=== PATIENT | female | born 1965 | race Caucasian/White ===

== ENCOUNTER 2019-07-10 01:56 | Day surgery (SDC) | payer OTHER, SELFPAY ==
[2019-07-01 14:52] VITALS: BMI 28.0
--- NOTE | 2019-07-10 09:11 | WPDANESEPPF ---
Anes - Initial Pre Proc Eval Procedure: Operation Date: 07/10/19 10:00 Proposed Procedures p Colonoscopy - Elmer Crenshaw MD Date/Time: 07/10/19 09:11 Surgeon: Elmer Crenshaw MD Pre Op Diagnosis: change in bowels habits, diarrhea, weight loss Patient Data Age: 54 Gender: F Height: 1.6 m Weight: 72 kg Allergies Allergy/AdvReac Type Severity Reaction Status Date / Time No Known Allergies Allergy Unknown Unverified 07/01/19 14:53 Home Medications Medication Instructions Recorded Confirmed Type diphenhydramine HCl [Benadryl] 25 mg PO HS PRN 07/01/19 07/01/19 History Patient hx anesthesia problems: none Family hx anesthesia problems: none PMFSH Past Medical History Medical History (Updated 07/10/19 @ 09:12 by Kennedy Whaley MD) Anxiety Depression Hypercholesterolemia Anes - Eval Final PreProcedure Day of Procedure 07/10/19 09:11 Patient weight: overweight Heart: regular rate and rhythm Lungs: clear to auscultation and normal air movement Airway: Mallampati scale class II Neurological: alert and oriented Last oral intake: >/= 8 hours ASA classification: II Emergent: no Anesthetic plan: proceed Anesthesia type and monitoring: general GIVS Informed Consent: The patient's anesthetic plan and its attendant risks and benefits were discussed with the patient/family/POA. Questions were solicited and answers provided to the satisfaction of the patient/family/POA.
[2019-07-10 09:20] VITALS: BP 148/104; PULSE 67; RESP 18; TEMP 36.5; O2SAT 98
[2019-07-10] MEDS: LACTATED RINGERS 1,000 ML 150 ML IV CONT (09:20)
--- NOTE | 2019-07-10 09:38 | WPDGICN ---
Assessment and Plan Additional Plan This is a 54-year-old white female patient seen in evaluation at the request of Dr. Monae Mccann. Patient reports a 3 month history of nausea vomiting. The nausea vomiting resolved but she continues to have diarrhea since that time. During this interval she has lost 22 lb. Previously had taken narcotics for endometriosis for the previous 8 months. She recently stopped this continue these medications. She was hospitalized in March 2019 with dehydration. After being seen in the office advised to take fiber supplements. She has not yet started this. Past medical history is significant for bipolar, manic depressive illness. Medications include Benadryl. She has no stated drug allergies. Family history is significant her aunt had Crohn's disease. Physical exam reveals her to be alert. Oriented x3. HEENT exam unremarkable. Lungs are clear to auscultation and percussion. Heart is without murmur or extra sounds. Abdominal exam bowel sounds are present soft nontender with no organomegaly. Digital external rectal exam is normal. Laboratory testing including electrolytes CBC metabolic panel all are normal. Celiac sprue panel is negative gastrin level is normal. Impression 1. Change in bowel habits. 2. Chronic diarrhea. Irritable bowel syndrome is felt likely. 3. Weight loss. 4. Neoplasia screening advised because of her age. Plan is for a trial of fiber supplements not yet implemented. Strongly encouraged to the patient. A colonoscopy will be performed for screening purposes as well as to evaluate for source of diarrhea. GI Consult Note Consult date/time: 07/10/19 09:38 HPI: Keyanna Rocha is a 54 year old female [facility] Past Medical History Medical History (Updated 07/10/19 @ 09:12 by Kennedy Whaley MD) Anxiety Depression Hypercholesterolemia Meds Home Medications and Allergies Home Medications Medication Instructions Recorded Confirmed Type diphenhydramine HCl [Benadryl] 25 mg PO HS PRN 07/01/19 07/10/19 History Allergies Allergy/AdvReac Type Severity Reaction Status Date / Time No Known Allergies Allergy Unknown Unverified 07/10/19 09:18 Vital Signs Vital Signs - 24 hr 07/10/19 09:20 Temperature 36.5 C Pulse Rate 67 Respiratory Rate 18 Blood Pressure 148/104 H Pulse Oximetry 98
[2019-07-10 10:16] VITALS: BP 121/93; PULSE 63; RESP 17; O2SAT 99
[2019-07-10 10:26] VITALS: BP 128/78; PULSE 62; RESP 22; O2SAT 100
[2019-07-10 10:36] VITALS: BP 140/65; PULSE 60; RESP 17; O2SAT 100
== END 2019-07-10 10:55 | disposition home or self-care (01) ==
PROVIDERS: PCP Nurse Practitioner Family; Visit Provider Internal Medicine Gastroenterology
PROC: 0DJD8ZZ Inspection of Lower Intestinal Tract, Via Natural or Artificial Opening Endoscopic (ICD-10-PCS; CPT 45378; principal; 2019-07-10 10:00)
DX: Z12.11 Encounter for screening for malignant neoplasm of colon (principal); D12.2 Benign neoplasm of ascending colon; K64.8 Other hemorrhoids; R19.7 Diarrhea, unspecified; R63.4 Abnormal weight loss; E78.00 Pure hypercholesterolemia, unspecified; F41.8 Other specified anxiety disorders
CPT/HCPCS: 45385; 88305; J2704; J7120

== ENCOUNTER 2020-01-15 15:24 | Emergency (ER) | payer OTHER, SELFPAY ==
--- NOTE | ~2020-01-15 | XR_ITS ---
EXAMINATION: XR chest 2V DATE: 01/15/2020 16:06 INDICATION: Left-sided chest pain TECHNIQUE: PA and lateral views of the chest are obtained. COMPARISON: 10/27/2016 FINDINGS: There are minimal airspace opacities of the right middle lobe. There is no pleural effusion or pneumothorax. The cardiomediastinal silhouette is normal. There is mild thoracic spondylosis. IMPRESSION: 1. Minimal airspace opacities of the right middle lobe, consistent with atelectasis versus pneumonia. Reviewed, dictated and finalized at location B. IMPRESSION: 1. Minimal airspace opacities of the right middle lobe, consistent with atelect asis versus pneumonia.
--- NOTE | 2020-01-15 15:26 | ECG_ITS ---
Measurements Intervals [place] Rate: 74 P: 45 VT: 129 QRS: 0 QRSD: 98 T: 102 QT: 364 QTc: 405 Interpretive Statements SINUS RHYTHM CANNOT RULE OUT SEPTAL INFARCT, AGE INDETERMINATE BORDERLINE ST-T WAVE ABNORMALITY- ANT/HIGH LAT LEADS BASELINE ARTIFACT- V5-V6 ABNORMAL ECG Electronically Signed On 01-15-2020 15:51:41 CDT by Aakash Mao D.O.
[2020-01-15 15:29] VITALS: BP 172/91; PULSE 86; RESP 22; TEMP 36.7; O2SAT 100
[2020-01-15 15:32] VITALS: O2SAT 100
[2020-01-15 15:33] VITALS: PULSE 77
[2020-01-15 15:42] LABS: Basophils Absolute Auto 0.1 K/mm3 (0.0-0.1); Basophils Percent Auto 0.6 % (0.2-1.2); Eosinophils Absolute Auto 0.1 K/mm3 (0-0.3); Hematocrit 45.8 % (37.0-47.0); Hemoglobin 15.4 g/dL (12.0-15.0); Immature Granulocyte Absolute 0.07 K/mm3 (0.00-0.031); Immature Granulocyte Percent A 0.5 % (0-0.5); Lymphocytes Absolute Auto 3.92 K/mm3 (0.9-3.2); Lymphocytes Percent Auto 29.1 % (18.3-44.2); Mean Corpuscular HGB Conc 33.6 g/dl (32-36); Mean Corpuscular Hemoglobin 32.3 pg (26-34); Mean Platelet Volume 9.6 fl (7.4-10.4); Monocytes Absolute Auto 1.2 K/mm3 (0.1-0.6); Monocytes Percent Auto 8.8 % (2.6-8.5); Neutrophils Absolute Auto 8.1 K/mm3 (1.3-6.7); Platelet Count Result 386 k/mm3 (150-375); Red Blood Count 4.77 M/mm3 (4.2-5.4); Red Cell Distribution Width 13.6 % (11.5-14.5); White Blood Count 13.5 K/mm3 (4.5-10.0)
[2020-01-15 15:52] LABS: INR 0.9; Prothrombin Time 11.7 Seconds (11.1-14.7)
[2020-01-15 15:53] LABS: Partial Thromboplastin Time 28.6 SECONDS (22.3-36.8)
[2020-01-15 15:54] LABS: Anion Gap 8 mmol/L (8-16); Blood Urea Nitrogen 13 mg/dL (7-17); Calcium 9.7 mg/dL (8.4-10.2); Carbon Dioxide 25 mmol/L (22-30); Chloride 103 mmol/L (98-107); Estimated CRCL calculation 61 ml/min; Estimated Glomerular Filt Rate > 60; Glucose 105 mg/dL (65-105); Potassium 3.8 mmol/L (3.4-5.0); Sodium 136 mmol/L (137-145)
[2020-01-15 16:06] LABS: Troponin I < 0.012 ng/mL (0.000-0.034)
--- NOTE | 2020-01-15 16:21 | ED.GENADULT ---
HPI - General Adult General Chief complaint: Chest Pain Stated complaint: the chest pains Time Seen by Provider: 01/15/20 15:31 Source: patient Mode of arrival: ambulatory Limitations: no limitations History of Present Illness HPI narrative: Patient is a 54-year-old female who presents with left-sided chest pain and pressure that is pleuritic in nature does not radiate for the last 4 days. Patient notes she has had mild cough but denies other URI symptoms or sick contacts. Patient denies fever chills nausea vomiting . Patient with history of anxiety and panic disorder and notes that this could be related. Patient on arrival in the room apparently anxious but in no other distress Related Data Home Medications Medication Instructions Recorded Confirmed sertraline 25 mg PO DAILY 01/15/20 01/15/20 Allergies Allergy/AdvReac Type Severity Reaction Status Date / Time No Known Allergies Allergy Unknown Verified 01/15/20 15:33 Review of Systems Review of Systems: All systems reviewed & are unremarkable except as noted in HPI and below PMFSH Past Medical History Medical History Anxiety Depression Hypercholesterolemia Exam Narrative: Exam Narrative: GENERAL: Well-appearing, well-nourished, and in no acute distress. HEAD: Normocephalic, atraumatic. EYES: PERRLA and EOMI. ENT: Nares clear, no rhinorrhea or epistaxis. Mucous membranes moist. CHEST: Clear to auscultation. No respiratory distress. No wheezes rales or rhonchi HEART: Regular rate and rhythm. No murmur heard. Normal peripheral pulses. ABDOMEN: Soft, nontender, nondistended EXTREMITIES: Normal range of motion. No edema. SKIN: Warm, dry, no rash. NEURO: No focal deficits. Alert and oriented x3. PSYCH: Normal mood and affect. Course Course Emergency Course: Patient in the room aware of case findings treatment plan diagnosis will be discharged at this time aware of COVID testing and recommendations as well as findings today felt appropriate for discharge home Vital Signs Vital signs: Vital Signs Temperature 98.1 F 01/15/20 15:29 Pulse Rate 86 01/15/20 15:29 Respiratory Rate 22 H 01/15/20 15:29 Blood Pressure 172/91 H 01/15/20 15:29 Pulse Oximetry 100 01/15/20 15:29 Temperature 98.1 F 01/15/20 15:29 Pulse Rate 77 01/15/20 15:33 Respiratory Rate 22 H 01/15/20 15:29 Blood Pressure 172/91 H 01/15/20 15:29 Pulse Oximetry 100 01/15/20 15:32 Medical Decision Making MDM Narrative Medical decision making narrative: Patient with possible pneumonia will be tested for COVID treated symptomatically felt appropriate for outpatient reevaluation hemodynamically stable in no distress felt appropriate for outpatient reevaluation provided with reasons to return Vital Signs Vital Signs: Vital Signs Temperature 98.1 F 01/15/20 15:29 Pulse Rate 86 01/15/20 15:29 Respiratory Rate 22 H 01/15/20 15:29 Blood Pressure 172/91 H 01/15/20 15:29 Pulse Oximetry 100 01/15/20 15:29 Temperature 98.1 F 01/15/20 15:29 Pulse Rate 77 01/15/20 15:33 Respiratory Rate 22 H 01/15/20 15:29 Blood Pressure 172/91 H 01/15/20 15:29 Pulse Oximetry 100 01/15/20 15:32 Lab Data Result diagrams: 01/15/20 15:35 01/15/20 15:35 Labs: Lab Results 01/15/20 01/15/20 01/15/20 Range/Units 15:35 15:35 15:35 WBC 13.5 H (4.5-10.0) K/mm3 RBC 4.77 (4.2-5.4) M/mm3 Hgb 15.4 H (12.0-15.0) g/dL Hct 45.8 (37.0-47.0) % MCV 96.0 (80-100) fl MCH 32.3 (26-34) pg MCHC 33.6 (32-36) g/dl RDW 13.6 (11.5-14.5) % Plt Count 386 H (150-375) k/mm3 MPV 9.6 (7.4-10.4) fl Immature Gran % (Auto) 0.5 (0-0.5) % Neut % (Auto) 60.0 (45.5-73.1) % Lymph % (Auto) 29.1 (18.3-44.2) % [place] % (Auto) 8.8 H (2.6-8.5) % Eos % (Auto) 1.0 (0-4.4) % Baso % (Auto) 0.6 (0.2-1.2) % Lymph # (Auto) 3.92 H
[2020-01-15 16:28] LABS: D Dimer 0.27 ug/mL (<0.48)
[2020-01-15 17:33] VITALS: BP 132/88; PULSE 88; RESP 20; TEMP 36.6; O2SAT 99
[2020-01-16 18:11] LABS: SARS-CoV-2 RNA PCR Negative
== END 2020-01-15 17:35 | disposition home or self-care (01) ==
PROVIDERS: Emergency Medicine Emergency Medical Services; Emergency Provider Emergency Medicine; PCP Nurse Practitioner Family
DX: J06.9 Acute upper respiratory infection, unspecified (principal); Z20.828 Contact with and (suspected) exposure to other viral communicable diseases; E78.00 Pure hypercholesterolemia, unspecified; F41.9 Anxiety disorder, unspecified; F32.9 Major depressive disorder, single episode, unspecified
CPT/HCPCS: 36415; 71046; 80048; 84484; 85025; 85380; 85610; 85730; 87635; 93005; 96374; 99284; C9803; J2060; U0003

== ENCOUNTER 2020-01-29 09:26 | Emergency (ER) | payer OTHER, SELFPAY ==
--- NOTE | ~2020-01-29 | XR_ITS ---
EXAMINATION: XR chest 2V EXAM DATE: 01/29/2020 10:15 INDICATION: Follow-up from pneumonia 2 weeks ago, still having left-sided chest pain and shortness of breath. TECHNIQUE: Frontal and lateral projections of the chest obtained and reviewed. Comparison is made to prior examination from 01/15/2020. FINDINGS: The lungs are clear, no evidence of airspace disease on this exam. There are no pleural ef fusions. The cardiomediastinal silhouette is within normal limits. There is no pneumothorax suspect ed. Mild thoracic scoliosis. IMPRESSION: No acute cardiopulmonary findings. Reviewed, dictated and finalized at location B.
--- NOTE | 2020-01-29 09:35 | ECG_ITS ---
Measurements Intervals [place] Rate: 75 P: 59 MA: 148 QRS: 5 QRSD: 86 T: 89 QT: 356 QTc: 398 Interpretive Statements SINUS RHYTHM BORDERLINE R WAVE PROGRESSION, ANTERIOR LEADS BORDERLINE T WAVE ABNORMALITY- HIGH LATERAL LEADS BASELINE ARTIFACT- I, II, III, AVR, AVL BORDERLINE ECG Electronically Signed On 01-29-2020 9:48:49 CDT by Aakash Mao D.O.
[2020-01-29 09:36] VITALS: BP 192/93; PULSE 82; RESP 17; TEMP 36.8; O2SAT 96
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
[2020-01-29] MEDS: KETOROLAC 30 MG/ML VIAL (*BKC) IV PUSH (09:48)
[2020-01-29 09:50] VITALS: BP 135/66; PULSE 63; RESP 18; O2SAT 99
[2020-01-29 10:00] LABS: Basophils Absolute Auto 0.1 K/mm3 (0.0-0.1); Basophils Percent Auto 0.8 % (0.2-1.2); Eosinophils Absolute Auto 0.1 K/mm3 (0-0.3); Immature Granulocyte Absolute 0.07 K/mm3 (0.00-0.031); Immature Granulocyte Percent A 0.6 % (0-0.5); Lymphocytes Absolute Auto 3.24 K/mm3 (0.9-3.2); Lymphocytes Percent Auto 25.7 % (18.3-44.2); Mean Corpuscular HGB Conc 33.3 g/dl (32-36); Mean Corpuscular Hemoglobin 32.3 pg (26-34); Mean Corpuscular Volume 96.8 fl (80-100); Monocytes Absolute Auto 1.1 K/mm3 (0.1-0.6); Monocytes Percent Auto 8.6 % (2.6-8.5); Neutrophils Percent Auto 63.3 % (45.5-73.1); Platelet Count Result 422 k/mm3 (150-375); Red Blood Count 4.96 M/mm3 (4.2-5.4); Red Cell Distribution Width 13.8 % (11.5-14.5); White Blood Count 12.6 K/mm3 (4.5-10.0)
[2020-01-29 10:16] LABS: D Dimer 0.27 ug/mL (<0.48)
[2020-01-29 11:00] VITALS: BP 130/62; PULSE 70; RESP 15; O2SAT 100
--- NOTE | 2020-01-29 11:29 | PC.NURSE ---
Pt declines IV. Will inform of this.
[2020-01-29 11:53] LABS: Anion Gap 5 mmol/L (8-16); Blood Urea Nitrogen 8 mg/dL (7-17); Calcium 9.2 mg/dL (8.4-10.2); Carbon Dioxide 26 mmol/L (22-30); Chloride 106 mmol/L (98-107); Estimated CRCL calculation 77 ml/min; Estimated Glomerular Filt Rate > 60; Glucose 93 mg/dL (65-105); Sodium 137 mmol/L (137-145)
== END 2020-01-29 12:23 | disposition home or self-care (01) ==
PROVIDERS: Emergency Provider Emergency Medicine; PCP Nurse Practitioner Family
DX: S29.012A Strain of muscle and tendon of back wall of thorax, initial encounter (principal); F41.9 Anxiety disorder, unspecified; F32.9 Major depressive disorder, single episode, unspecified; E78.00 Pure hypercholesterolemia, unspecified; F17.200 Nicotine dependence, unspecified, uncomplicated; R94.31 Abnormal electrocardiogram [ECG] [EKG]; V43.92XA Unspecified car occupant injured in collision with other type car in traffic accident, initial encounter
CPT/HCPCS: 36415; 71046; 80048; 85025; 85380; 96374; 99284; J1885

== ENCOUNTER 2020-05-12 12:04 | Outpatient (NON) | payer OTHER, SELFPAY ==
[2020-05-12 23:24] LABS: SARS-CoV-2 RNA PCR Negative
== END 2020-05-12 12:05 ==
LOC: ANHCOVIDDT 12:05
PROVIDERS: PCP Nurse Practitioner Family; Visit Provider Nurse Practitioner Family
DX: R68.89 Other general symptoms and signs (principal); Z20.828 Contact with and (suspected) exposure to other viral communicable diseases
CPT/HCPCS: 87635; C9803; U0003

== ENCOUNTER 2020-09-20 09:49 | Outpatient (CLI) | payer OTHER, SELFPAY | END 2020-09-20 09:50 | disposition home or self-care (01) | LOC: ANHCOVIDVC 09:49 | PROVIDERS: PCP Internal Medicine | DX: Z23 Encounter for immunization (principal) | CPT/HCPCS: 0001A; 91300 ==

== ENCOUNTER 2020-10-11 09:42 | Outpatient (CLI) | payer OTHER, SELFPAY | END 2020-10-11 09:43 | LOC: ANHCOVIDVC 09:42 | PROVIDERS: PCP Internal Medicine | DX: Z23 Encounter for immunization (principal) | CPT/HCPCS: 0002A; 91300 ==

== ENCOUNTER 2021-06-09 15:31 | Emergency (ER) | payer OTHER, SELFPAY ==
--- NOTE | ~2021-06-09 | XR_ITS ---
EXAMINATION: XR hand LT min 3V EXAM DATE: 06/09/2021 16:07 INDICATION: LT hand injury 3-5 Metacarpals X2 Weeks,Bruising,Radiates Up. TECHNIQUE: Left hand frontal, lateral and oblique projections obtained and reviewed. There is no shae or study for comparison. FINDINGS: Left metacarpal bones are unremarkable. There are no acute fractures or dislocations iden tified. There is no subcutaneous gas. The soft tissue is unremarkable. There are no radiopaque fo reign bodies. IMPRESSION: No acute osseous findings. Reviewed, dictated and finalized at location A. ATRICS PHYSICIAN IMPRESSION: No acute osseous findings.
[2021-06-09 15:51] VITALS: BP 143/86; PULSE 80; RESP 20; TEMP 36.1; O2SAT 100
--- NOTE | 2021-06-09 16:24 | ED.GENADULT ---
HPI - General Adult General Chief complaint: Extremity Injury, Upper Stated complaint: Left hand injury x2 weeks ago Time Seen by Provider: 06/09/21 16:20 Source: RN notes reviewed History of Present Illness HPI narrative: Patient presents emerge department from home for left hand pain. Patient states proximally 2 weeks ago she is moving a couch with her and had her hand up on the doorway when the pain got crushed between the doorway and the couch she had pain with bruising and ecchymosis over the left dorsal hand between the first and second metacarpals states pain with movement of the thumb she denies any other trauma or injury denies any wrist pain states that she has been trying to wrap the hand Related Data Home Medications Medication Instructions Recorded Confirmed sertraline 25 mg PO DAILY 01/15/20 01/29/20 Allergies Allergy/AdvReac Type Severity Reaction Status Date / Time No Known Allergies Allergy Unknown Verified 01/29/20 09:40 Review of Systems Review of Systems: Gen.: Denies fevers or chills Musculoskeletal: See HPI Neuro: Denies numbness, tingling, weakness Skin: Denies rash Endo: Denies DM PMFSH Past Medical History Medical History (Updated 06/09/21 @ 16:27 by Chang Atkinson DO) Anxiety Depression Hypercholesterolemia Family History Family History Mother Patient's mother is in good health Hypertension Father Patient's father is in good health Family history of heart disease in male family member before age 55 Grandparent Acute myocardial infarction Grandparent Family history of coronary artery disease Other Family history of malignant neoplasm of cervix Family history of malignant neoplasm of uterus Social History Social History Smoking status: Current every day smoker Alcohol intake: never Gender identity (if verbalized by the patient): Female Exam Narrative: APPEARANCE: No acute distress, nontoxic, resting in bed Eyes: EOMI HEENT: Normocephalic, atraumatic, RESPIRATORY: No respiratory distress MUSCULOSKELETAl: Tender palpation of her left dorsal hand over the first and second meta carpal. Ecchymosis present no swelling no tenderness of the wrist full flexion-extension of all 5 MCP and IP joints, radial pulse 2+ neurovascular intact NEURO: Awake and alert. Following commands, speech normal, no focal deficits SKIN:: Warm, dry. Normal Color no rash or lesions Course Course Emergency Course: Discussed with patient results of workup and diagnosis. Discussed need for follow-up with primary care, proper use of medication, and reasons to return to the emergency department. Patient understands and agrees to current treatment plan Vital Signs Vital signs: Vital Signs Temperature 97.0 F L 06/09/21 15:51 Pulse Rate 80 06/09/21 15:51 Respiratory Rate 20 06/09/21 15:51 Blood Pressure 143/86 H 06/09/21 15:51 Pulse Oximetry 100 06/09/21 15:51 Temperature 97.0 F L 06/09/21 15:51 Pulse Rate 80 06/09/21 15:51 Respiratory Rate 20 06/09/21 15:51 Blood Pressure 143/86 H 06/09/21 15:51 Pulse Oximetry 100 06/09/21 15:51 Medical Decision Making Vital Signs Vital Signs: Vital Signs Temperature 97.0 F L 06/09/21 15:51 Pulse Rate 80 06/09/21 15:51 Respiratory Rate 20 06/09/21 15:51 Blood Pressure 143/86 H 06/09/21 15:51 Pulse Oximetry 100 06/09/21 15:51 Temperature 97.0 F L 06/09/21 15:51 Pulse Rate 80 06/09/21 15:51 Respiratory Rate 20 06/09/21 15:51 Blood Pressure 143/86 H 06/09/21 15:51 Pulse Oximetry 100 06/09/21 15:51 Imaging Data Radiologist's impression: ITS Impressions Hand X-Ray 06/09/21 16:10 IMPRESSION: No acute osseous findings. Discharge Plan Discharge Clinical Impression: Contusion of hand, left Patient Disposition: Home, Self-Care Conditi
== END 2021-06-09 16:35 | disposition home or self-care (01) ==
PROVIDERS: Emergency Provider Emergency Medicine; PCP Nurse Practitioner Family
DX: S60.222A Contusion of left hand, initial encounter (principal); F32.9 Major depressive disorder, single episode, unspecified; F41.9 Anxiety disorder, unspecified; F17.200 Nicotine dependence, unspecified, uncomplicated; W23.0XXA Caught, crushed, jammed, or pinched between moving objects, initial encounter
CPT/HCPCS: 73130; 99283

== ENCOUNTER 2021-11-30 04:44 | Emergency (ER) | payer OTHER, SELFPAY ==
[2021-11-30 04:49] VITALS: BP 153/77; PULSE 66; RESP 18; TEMP 36.6; O2SAT 99
--- NOTE | 2021-11-30 05:55 | ED.BACK ---
HPI - Back Pain/Injury General Chief Complaint: Back Pain/Injury Stated Complaint: back pain Time Seen by Provider: 11/30/21 05:35 History of Present Illness HPI Narrative: 56-year-old female presenting the emergency department for evaluation of acute on chronic back pain. Patient states he does have history of slipped disks and degenerative disc disease. Patient states on Saturday she had a ground-level fall during which she injured her lower back. Patient did have follow-up with her primary care physician and was prescribed a course of steroids and muscle relaxants. Patient states that she is also been taking ibuprofen for pain control. Patient states her pain is improved in the emergency department but states that her back pain is still poorly controlled. Patient denies any associated numbness or weakness. Patient denies any difficulty starting urination and denies any loss of bowel control. Related Data Home Medications Medication Instructions Recorded Confirmed amlodipine 5 mg tablet 5 mg PO DAILY 06/28/21 06/28/21 Allergies Allergy/AdvReac Type Severity Reaction Status Date / Time No Known Allergies Allergy Unknown Verified 11/30/21 04:54 Review of Systems Review of Systems: CONSTITUTIONAL: Denies fever, chills, or sweats. EYES: Denies visual changes, redness, or discharge. CARDIOVASCULAR: Denies chest pain, palpitations, or edema. RESPIRATORY: Denies cough or dyspnea. GASTROINTESTINAL: Denies abdominal pain, nausea, vomiting, or diarrhea. GENITOURINARY: Denies dysuria or hematuria. SKIN: Denies rash or itching. MUSCULOSKELETAL: See HPI NEUROLOGIC: Denies headache, numbness, or weakness. PSYCHIATRIC: Denies anxiety or depression. [facility] Past Medical History Medical History (Updated 11/30/21 @ 06:00 by Surendra Bella MD) Anxiety Depression Hypercholesterolemia Family History Family History Mother Patient's mother is in good health Hypertension Father Patient's father is in good health Family history of heart disease in male family member before age 55 Grandparent Acute myocardial infarction Grandparent Family history of coronary artery disease Other Family history of malignant neoplasm of cervix Family history of malignant neoplasm of uterus Social History Social History (Updated 06/28/21 @ 11:23 by Patrizia Polanco CMA) Smoking status: Current every day smoker Alcohol intake: never Substance use: never Gender identity (if verbalized by the patient): Female Exam Narrative: APPEARANCE: Well appearing, no pain, no distress, well-nourished. HEAD: normocephalic, atraumatic. EYES: PERRLA/EOMI, conjunctivae clear. NECK: Supple. No adenopathy, no masses. RESPIRATORY: Airway patent, respirations nonlabored. Clear to auscultation bilaterally, no rales, rhonchi, wheezing. CARDIOVASCULAR: Regular rate and rhythm without murmurs rubs or gallops. ABDOMINAL: Soft, nontender, nondistended, normal bowel sounds MUSCULOSKELETAL: Moves all extremities. No midline tenderness to palpation. NEURO: Alert. Cranial nerves II through XII intact. Grossly intact SKIN: Warm, dry. Normal Color Course Course Emergency Course: Patient was encouraged to continue taking ibuprofen for pain control along with her baclofen. Patient was comfortable to plan for discharge and close follow-up Vital Signs Vital signs: Vital Signs Temperature 97.9 F 11/30/21 04:49 Pulse Rate 66 11/30/21 04:49 Respiratory Rate 18 11/30/21 04:49 Blood Pressure 153/77 H 11/30/21 04:49 Pulse Oximetry 99 11/30/21 04:49 Oxygen Delivery Room Air 11/30/21 04:49 Temperature 97.9 F 11/30/21 04:49 Pulse Rate 87 11/30/21 06:35 Respiratory Rate 14 11/30/21 06:35 Blood Pressure 134/89 11/30/21 06:35 Pulse Oximetry 97 11/30/21 06:35 Oxygen Delivery Room Air 11/30/21 04:49 Discharge Plan Discharge Clinical Impression: L[place]
[2021-11-30] MEDS: HYDROcodone/acetaminophen (*CRX) 5-325 MG TABLET 1 TAB PO (06:06)
[2021-11-30 06:35] VITALS: BP 134/89; PULSE 87; RESP 14; O2SAT 97
== END 2021-11-30 06:35 | disposition home or self-care (01) ==
LOC: ANHED 06:11
PROVIDERS: Emergency Provider Emergency Medicine; PCP Nurse Practitioner Family
DX: M54.50 Low back pain, unspecified (principal); G89.29 Other chronic pain; E78.00 Pure hypercholesterolemia, unspecified; F17.200 Nicotine dependence, unspecified, uncomplicated
CPT/HCPCS: 99283; A9270

== ENCOUNTER 2022-02-21 08:03 | Emergency (ER) | payer OTHER, SELFPAY ==
[2022-02-21 08:11] VITALS: BP 144/77; PULSE 86; RESP 16; TEMP 36; O2SAT 97
[2022-02-21 08:12] VITALS: BP 144/77; PULSE 86; RESP 16; TEMP 36; O2SAT 97
--- NOTE | 2022-02-21 08:22 | ED.FEMALEGU ---
HPI - Female Genitourinary General Chief complaint: Urogenital-Female Stated complaint: uti Time Seen by Provider: 02/21/22 08:23 Source: patient, RN notes reviewed and old records reviewed Mode of arrival: ambulatory Limitations: no limitations History of Present Illness HPI Narrative: 56-year-old female who presents to [facility] care with complaints of continued lower back pain and discomfort over the suprapubic abdomen region. Patient states she did start on Cipro that was ordered by her PCP on the of this month she states she still has complaints of lower back pain and suprapubic tenderness. Patient also was given some Flexeril for low back pain on 02/15/2022 but states she has ran out. Patient would like to try some Pyridium for her symptoms and states she needs a refill of the Flexeril. MD elicited complaint: dysuria, back pain and other (Suprapubic pain) Location of symptoms: suprapubic and low back Related Data Home Medications Medication Instructions Recorded Confirmed aripiprazole 2 mg tablet mg 02/21/22 ciprofloxacin HCl 500 mg tablet mg 02/21/22 cyclobenzaprine 10 mg tablet mg 02/21/22 Allergies Allergy/AdvReac Type Severity Reaction Status Date / Time No Known Allergies Allergy Unknown Verified 02/21/22 08:10 Review of Systems Review of Systems: CONSTITUTIONAL: Denies fever, chills, or sweats. EYES: Denies visual changes, redness, or discharge. ENT: Denies rhinorrhea, congestion, sore throat, or otalgia. CARDIOVASCULAR: Denies chest pain, palpitations, or edema. RESPIRATORY: Denies cough or dyspnea. GASTROINTESTINAL: Suprapubic abdominal pain, nausea, vomiting, or diarrhea. GENITOURINARY: Positive dysuria or hematuria. SKIN: Denies rash or itching. MUSCULOSKELETAL: Lower back pain, joint pain, or myalgia. NEUROLOGIC: Denies headache, numbness, or weakness. PSYCHIATRIC: Denies anxiety or depression. All systems reviewed & are unremarkable except as noted in HPI and below PMFSH Past Medical History Medical History (Updated 02/21/22 @ 08:38 by Eliz Lombardo NP) Anxiety Depression Hypercholesterolemia Family History Family History Mother Patient's mother is in good health Hypertension Father Patient's father is in good health Family history of heart disease in male family member before age 55 Grandparent Acute myocardial infarction Grandparent Family history of coronary artery disease Other Family history of malignant neoplasm of cervix Family history of malignant neoplasm of uterus Social History Social History Smoking status: Current every day smoker Alcohol intake: never Substance use: never Gender identity (if verbalized by the patient): Female Comments At time of signature, agree with nursing past medical, surgical, social and family history. There is no relevant family history pertinent to the presenting complaint Exam Narrative: GENERAL: Well-appearing, well-nourished, and in no acute distress. HEAD: Normocephalic, atraumatic. EYES: PERRLA and EOMI. ENT: Nares clear, no rhinorrhea or epistaxis. Mucous membranes moist. TMs normal with good light reflex. Throat pink no lesions or swelling NECK: Supple. No lymphadenopathy CHEST: Clear to auscultation. No respiratory distress. SaO2 97% on room air HEART: Regular rate and rhythm. No murmur heard. Normal peripheral pulses. ABDOMEN: Soft, suprapubic tender, nondistended, normal active bowel sounds. Lower back discomfort, no CVA tenderness EXTREMITIES: Normal range of motion. No edema. SKIN: Warm, dry, no rash. NEURO: No focal deficits. Alert and oriented x3. Course Course Level of Care: Express Care Visit Vital Signs Vital signs: Vital Signs Temperature 36.0 C L 02/21/22 08:11 Pulse Rate 86 02/21/22 08:11 Respiratory Rate 16 02/21/22 08:11 Blood Pressure 144/77 H 02/21/22 08:11
== END 2022-02-21 08:50 | disposition home or self-care (01) ==
PROVIDERS: Emergency Provider Registered Nurse; PCP Nurse Practitioner Family
DX: N39.0 Urinary tract infection, site not specified (principal); M54.50 Low back pain, unspecified; F17.200 Nicotine dependence, unspecified, uncomplicated; E78.00 Pure hypercholesterolemia, unspecified
CPT/HCPCS: 81003; 99213; G0463

== ENCOUNTER 2022-02-22 11:21 | Emergency (ER) | payer OTHER, SELFPAY ==
--- NOTE | ~2022-02-22 | CT_ITS ---
EXAMINATION: CT abdomen pelvis wo con DATE: 02/22/2022 13:43 INDICATION: Suprapubic pain TECHNIQUE: Computed tomography (CT) of the abdomen and pelvis was performed without intravenous contr ast. The dose-length product (DLP) was 736.30 mGy-cm. Automated exposure control and iterative recons truction technique were employed. COMPARISON: 03/12/2019 FINDINGS: Minimal dependent atelectasis is present in the lung bases. The heart size is normal. The l iver, spleen, pancreas, gallbladder, and adrenal glands are normal. The kidneys are unremarkable. No stones are identified in the kidneys, ureters, or bladder. There is no hydronephrosis or hydroureter. A retroaortic left renal vein is noted. No pathologically enlarged abdominal or pelvic lymph nodes a re identified. There is moderate lumbar spondylosis. IMPRESSION: 1. No CT correlate for the patient's symptoms. Reviewed, dictated and finalized at location B.
[2022-02-22 11:27] VITALS: BP 138/90; PULSE 90; RESP 16; TEMP 36.4; O2SAT 96
--- NOTE | 2022-02-22 13:09 | PC.NURSE ---
patient declines IV medications and IV at this time, EDP made aware.
[2022-02-22 13:14] LABS: Basophils Absolute Auto 0.1 K/mm3 (0.0-0.1); Basophils Percent Auto 0.6 % (0.2-1.2); Eosinophils Absolute Auto 0.2 K/mm3 (0-0.3); Eosinophils Percent Auto 1.2 % (0-4.4); Hematocrit 46.2 % (37.0-47.0); Hemoglobin 15.2 g/dL (12.0-15.0); Immature Granulocyte Absolute 0.08 K/mm3 (0.00-0.031); Immature Granulocyte Percent A 0.6 % (0-0.5); Lymphocytes Absolute Auto 2.71 K/mm3 (0.9-3.2); Lymphocytes Percent Auto 21.3 % (18.3-44.2); Mean Corpuscular HGB Conc 32.9 g/dl (32-36); Mean Corpuscular Hemoglobin 32.1 pg (26-34); Mean Corpuscular Volume 97.5 fl (80-100); Mean Platelet Volume 9.2 fl (7.4-10.4); Monocytes Absolute Auto 1.3 K/mm3 (0.1-0.6); Monocytes Percent Auto 10.2 % (2.6-8.5); Neutrophils Absolute Auto 8.4 K/mm3 (1.3-6.7); Neutrophils Percent Auto 66.1 % (45.5-73.1); Platelet Count Result 377 k/mm3 (150-375); Red Blood Count 4.74 M/mm3 (4.2-5.4); Red Cell Distribution Width 13.8 % (11.5-14.5); White Blood Count 12.8 K/mm3 (4.5-10.0)
[2022-02-22 13:27] LABS: Bacteria Urine 1+ /hpf; Mucus Urine Rare /lpf; RBC Urine 0-2 /hpf (0-2); Squamous Epithelial Cell Urine Few /hpf (Few); WBC Urine 0-3 /hpf
[2022-02-22 13:29] LABS: Anion Gap 12 mmol/L (8-16); Blood Urea Nitrogen 15 mg/dL (7-17); Calcium 10.1 mg/dL (8.4-10.2); Carbon Dioxide 24 mmol/L (22-30); Chloride 102 mmol/L (98-107); Estimated CRCL calculation 61 ml/min; Estimated Glomerular Filt Rate > 60; Glucose 105 mg/dL (65-110); Sodium 138 mmol/L (137-145)
[2022-02-22] MEDS: KETOROLAC (*BKC) 60 MG/2 ML VIAL IM (13:35)
[2022-02-22 13:38] LABS: Add Urine Microscopic? YES; Appearance Urine Slightly Cloudy (Clear); Color Urine Orange (Yellow)
--- NOTE | 2022-02-22 13:52 | ED.GENADULT ---
HPI - General Adult General Chief complaint: Urogenital-Female Stated complaint: abd pain Time Seen by Provider: 02/22/22 12:00 History of Present Illness HPI narrative: Patient is a 56-year-old female who presents ER with suprapubic discomfort. Ongoing over the last couple days. Concerned she may have a UTI. Has been taking Pyridium without improvement. She has also been taking ciprofloxacin for 3 days without improvement. She never had dysuria. No fevers or chills or sweats. No history of kidney stones. Denies nausea or vomiting. Related Data Home Medications Medication Instructions Recorded Confirmed aripiprazole 2 mg tablet mg 02/21/22 ciprofloxacin HCl 500 mg tablet mg 02/21/22 cyclobenzaprine 10 mg tablet mg 02/21/22 Allergies Allergy/AdvReac Type Severity Reaction Status Date / Time No Known Allergies Allergy Unknown Verified 02/21/22 08:10 Review of Systems Review of Systems: All systems reviewed & are unremarkable except as noted in HPI and below Constitutional: Constitutional: Denies chills, Denies fatigue and Denies fever(s) Gastrointestinal: Gastrointestinal: Reports abdominal pain, Denies diarrhea, Denies nausea and Denies vomiting Genitourinary: Genitourinary: Reports nocturia, Denies dysuria, Reports pelvic pain and Denies flank pain PMFSH Past Medical History Medical History (Updated 02/22/22 @ 14:55 by Alfonso Rosales MD) Anxiety Depression Hypercholesterolemia Surgical History Surgical History (Updated 02/22/22 @ 13:58 by Alfonso Rosales MD) History of hysterectomy Normal colonoscopy Family History Family History Mother Patient's mother is in good health Hypertension Father Patient's father is in good health Family history of heart disease in male family member before age 55 Grandparent Acute myocardial infarction Grandparent Family history of coronary artery disease Other Family history of malignant neoplasm of cervix Family history of malignant neoplasm of uterus Social History Social History Smoking status: Current every day smoker Alcohol intake: never Substance use: never Gender identity (if verbalized by the patient): Female Exam Narrative: GENERAL: Well-appearing, well-nourished, and in no acute distress. HEAD: Normocephalic, atraumatic. CHEST: Clear to auscultation. No respiratory distress. HEART: Regular rate and rhythm. Normal peripheral pulses. ABDOMEN: Soft, patient reports suprapubic discomfort without rebound or guarding, nondistended. EXTREMITIES: Normal range of motion. No edema. SKIN: Warm, dry, no rash. NEURO: Alert and oriented x3. PSYCH: Normal mood and affect. Course Course Emergency Course: Patient may continue home antibiotics as there is 1+ bacteria in urine but otherwise it appears normal on micro. Blood work normal. No improvement with Toradol. CT without obstructing stone. Patient has had total hysterectomy so no concern for ovarian pathology. Will treat as bladder spasm. Vital Signs Vital signs: Vital Signs Temperature 97.6 F 02/22/22 11:27 Pulse Rate 90 02/22/22 11:27 Respiratory Rate 16 02/22/22 11:27 Blood Pressure 138/90 02/22/22 11:27 Pulse Oximetry 96 02/22/22 11:27 Oxygen Delivery Room Air 02/22/22 11:27 Temperature 97.6 F 02/22/22 11:27 Pulse Rate 90 02/22/22 11:27 Respiratory Rate 16 02/22/22 11:27 Blood Pressure 138/90 02/22/22 11:27 Pulse Oximetry 96 02/22/22 11:27 Oxygen Delivery Room Air 02/22/22 11:27 Medical Decision Making Vital Signs Vital Signs: Vital Signs Temperature 97.6 F 02/22/22 11:27 Pulse Rate 90 02/22/22 11:27 Respiratory Rate 16 02/22/22 11:27 Blood Pressure 138/90 02/22/22 11:27 Pulse Oximetry 96 02/22/22 11:27 Oxygen Delivery Room Air 02/22/22 11:27 Temperature 97.6 F 02/22
[2022-02-22 15:52] VITALS: BP 130/75; PULSE 85; RESP 15; O2SAT 100
== END 2022-02-22 15:45 | disposition home or self-care (01) ==
PROVIDERS: Emergency Provider Emergency Medicine; PCP Nurse Practitioner Family
DX: N32.89 Other specified disorders of bladder (principal); F17.200 Nicotine dependence, unspecified, uncomplicated
CPT/HCPCS: 36415; 74176; 80048; 81001; 85025; 96372; 99284; A9270; J1885

== ENCOUNTER 2022-05-26 16:48 | Emergency (ER) | payer OTHER, SELFPAY ==
[2022-05-26 16:57] VITALS: BP 149/101; PULSE 87; RESP 16; TEMP 36.1; O2SAT 99
--- NOTE | 2022-05-26 17:06 | ED.URI ---
HPI - URI/Sore Throat General Chief Complaint: Upper Respiratory Infection Stated Complaint: sore throat Time Seen by Provider: 05/26/22 17:07 Source: patient, RN notes reviewed and old records reviewed Mode of arrival: ambulatory Limitations: no limitations History of Present Illness HPI Narrative: 57-year-old female presents to the [facility] with nasal congestion, sore throat, drainage started about a week ago when she called her primary care provider called in a Z-Marcelino. States that she completed her Z-Marcelino castrate she is not better. Denies any fevers, chest pain, shortness of breath. Related Data Home Medications Medication Instructions Recorded Confirmed aripiprazole 2 mg tablet mg 02/21/22 azithromycin 250 mg tablet mg 05/26/22 Allergies Allergy/AdvReac Type Severity Reaction Status Date / Time No Known Allergies Allergy Unknown Verified 05/26/22 16:50 Review of Systems Review of Systems: All systems reviewed & are unremarkable except as noted in HPI and below Constitutional: Constitutional: Reports no additional constitutional complaints Eyes: Eyes: Reports no additional eye complaints ENT: Reports as per HPI and Reports sore throat Cardiovascular: Cardiovascular: Reports no additional cardiovascular complaints, Denies chest pain and Denies dyspnea Respiratory: Respiratory: Reports no additional respiratory complaints, Denies chest congestion, Denies cough and Denies dyspnea Gastrointestinal: Gastrointestinal: Reports no additional gastrointestinal complaints, Denies abdominal pain, Denies nausea and Denies vomiting Musculoskeletal: Musculoskeletal: Reports no additional musculoskeletal complaints Integumentary/Breasts: Skin/Breast: Reports system reviewed and no additional complaints, except as docu Neurologic: Reports system reviewed and no additional complaints, except as documented Psychiatric: Psychiatric: Reports no additional psychiatric complaints Allergic/Immunologic: Allergic/Immunologic: Reports no additional allergic/immunologic complaints [facility] Past Medical History Medical History Anxiety Depression Hypercholesterolemia Surgical History Surgical History History of hysterectomy Normal colonoscopy Family History Family History Mother Patient's mother is in good health Hypertension Father Patient's father is in good health Family history of heart disease in male family member before age 55 Grandparent Acute myocardial infarction Grandparent Family history of coronary artery disease Other Family history of malignant neoplasm of cervix Family history of malignant neoplasm of uterus Social History Social History Smoking status: Current every day smoker Alcohol intake: never Substance use: never Gender identity (if verbalized by the patient): Female Comments At the time of my signature, I reviewed and agree with the nursing past medical, surgical, social, and family history. There is no relevant family history pertinent to the patient complaint. Exam Const: General: cooperative, healthy appearing, comfortable, no acute distress, well developed, alert and well nourished Nutritional Appearance: well nourished Orientation/consciousness: patient oriented x3 Limitations: no limitations HENMT: Head: normal to inspection Ears: hearing grossly normal bilaterally and external ears normal Face/Nose/Sinus: Normal external nose present, Normal nares present, Normal nasal mucous membranes and turbinates present and normal facial exam Face and sinus: normal facial exam Mouth: Yes Normal oral and palatal mucosa present, Yes lip normal and Yes moist mucous membranes Throat: posterior oropharynx normal, uvula midline and postnasal drainage Eyes: Genera
== END 2022-05-26 17:26 | disposition home or self-care (01) ==
PROVIDERS: Emergency Provider Nurse Practitioner; PCP Nurse Practitioner Family
DX: R09.82 Postnasal drip (principal); J02.9 Acute pharyngitis, unspecified; F17.290 Nicotine dependence, other tobacco product, uncomplicated; E78.00 Pure hypercholesterolemia, unspecified
CPT/HCPCS: 99213; G0463

== ENCOUNTER 2023-01-24 14:03 | Emergency (ER) | payer OTHER, SELFPAY ==
--- NOTE | ~2023-01-24 | XR_ITS ---
EXAMINATION: XR finger 3rd RT min 2V DATE: 01/24/2023 14:28 INDICATION: Right hand third digit injury and pain. TECHNIQUE: 5 views of right hand third digit were obtained. COMPARISON: None. FINDINGS: There is mild flexion of third distal interphalangeal joint and hyperextension of proximal interphalangeal joint. No fracture. Joint spaces are normal. IMPRESSION: 1. [place]-neck deformity of third digit. Reviewed, dictated and finalized at location A.
[2023-01-24 14:09] VITALS: BP 154/80; PULSE 76; RESP 16; TEMP 37.1; O2SAT 98
--- NOTE | 2023-01-24 14:35 | ED.GENADULT ---
HPI - General Adult General Chief complaint: Extremity Injury, Upper Stated complaint: Right Hand Finger Pain Time Seen by Provider: 01/24/23 14:36 Source: patient, RN notes reviewed and old records reviewed Mode of arrival: ambulatory Limitations: no limitations History of Present Illness HPI narrative: 57-year-old female presents to the [facility] with issue straightening the right middle finger at the DIP joint. Patient reports that she reached into her washing machine jamming her finger. Injury happened approximately noon today Placed a splint with a popsicle stick on the finger, states it feels better Onset (ago): hour(s) (2) Related Data Home Medications Medication Instructions Recorded Confirmed aripiprazole 2 mg tablet mg 02/21/22 duloxetine 40 mg capsule,delayed mg PO 01/24/23 release Allergies Allergy/AdvReac Type Severity Reaction Status Date / Time No Known Allergies Allergy Unknown Verified 05/26/22 16:50 Review of Systems Review of Systems: All systems reviewed & are unremarkable except as noted in HPI and below Constitutional: Constitutional: Reports no additional constitutional complaints Eyes: Eyes: Reports no additional eye complaints ENT: Reports system reviewed and no additional complaints, except as documented Cardiovascular: Cardiovascular: Reports no additional cardiovascular complaints, Denies chest pain and Denies dyspnea Respiratory: Respiratory: Reports no additional respiratory complaints, Denies chest congestion, Denies cough and Denies dyspnea Gastrointestinal: Gastrointestinal: Reports no additional gastrointestinal complaints, Denies abdominal pain, Denies nausea and Denies vomiting Musculoskeletal: Musculoskeletal: Reports as per HPI Integumentary/Breasts: Skin/Breast: Reports system reviewed and no additional complaints, except as docu Neurologic: Reports system reviewed and no additional complaints, except as documented Psychiatric: Psychiatric: Reports no additional psychiatric complaints Allergic/Immunologic: Allergic/Immunologic: Reports no additional allergic/immunologic complaints [facility] Past Medical History Medical History Anxiety Depression Hypercholesterolemia Surgical History Surgical History History of hysterectomy Normal colonoscopy Family History Family History Mother Patient's mother is in good health Hypertension Father Patient's father is in good health Family history of heart disease in male family member before age 55 Grandparent Acute myocardial infarction Grandparent Family history of coronary artery disease Other Family history of malignant neoplasm of cervix Family history of malignant neoplasm of uterus Social History Social History Smoking status: Current every day smoker Alcohol intake: never Substance use: never Gender identity (if verbalized by the patient): Female Comments At the time of my signature, I reviewed and agree with the nursing past medical, surgical, social, and family history. There is no relevant family history pertinent to the patient complaint. Exam Const: General: cooperative, healthy appearing, comfortable, no acute distress, well developed, alert and well nourished Nutritional Appearance: well nourished Orientation/consciousness: patient oriented x3 Limitations: no limitations HENMT: Head: normal to inspection Ears: hearing grossly normal bilaterally and external ears normal Face/Nose/Sinus: Normal external nose present, Normal nares present, Normal nasal mucous membranes and turbinates present and normal facial exam Face and sinus: normal facial exam Eyes: General: appearance normal, both eyes and all related structures Alignment and Position: alignment normal Per
== END 2023-01-24 14:58 | disposition home or self-care (01) ==
PROVIDERS: Emergency Provider Nurse Practitioner; PCP Nurse Practitioner Family
DX: M20.011 Mallet finger of right finger(s) (principal); F17.200 Nicotine dependence, unspecified, uncomplicated; F41.9 Anxiety disorder, unspecified; F32.A Depression, unspecified; E78.00 Pure hypercholesterolemia, unspecified
CPT/HCPCS: 29130; 73140; 99213; G0463

== ENCOUNTER 2023-02-18 11:48 | Emergency (ER) | payer OTHER, SELFPAY ==
--- NOTE | 2023-02-18 12:35 | PC.NURSE ---
called twice for triage. no answer.
== END 2023-02-18 12:35 | disposition left against medical advice (07) ==
LOC: ANHED 12:40
PROVIDERS: Emergency Provider Emergency Medicine; PCP Nurse Practitioner Family
DX: Z53.21 Procedure and treatment not carried out due to patient leaving prior to being seen by health care provider (principal)
CPT/HCPCS: 99199

== ENCOUNTER 2023-07-22 12:39 | Emergency (ER) | payer OTHER, SELFPAY ==
--- NOTE | 2023-07-22 12:42 | ECG_ITS ---
Measurements Intervals [place] Rate: 95 P: 23 ME: 159 QRS: 37 QRSD: 80 T: 104 QT: 315 QTc: 397 Interpretive Statements SINUS RHYTHM POSSIBLE LEFT ATRIAL ENLARGEMENT [-0.1mV P WAVE IN V1/V2] POOR R-WAVE PROGRESSION ABNORMAL ECG COMPARED TO ECG 01/29/2020 09:34:40 NO SIGNIFICANT CHANGE Electronically Signed On 07-22-2023 15:10:47 ANIMAL CARE SUPERVISOR by Valdo Olivas M.D.
[2023-07-22 12:50] VITALS: BP 127/75; PULSE 107; RESP 20; TEMP 36.2; O2SAT 100
--- NOTE | 2023-07-22 12:54 | ED.SOB ---
HPI - SOB/Dyspnea General Chief Complaint: Chest Pain Stated Complaint: SOB/Chest Wall Pain Time Seen by Provider: 07/22/23 13:08 Source: patient Mode of arrival: ambulatory Limitations: no limitations History of Present Illness HPI Narrative: 58-year-old female presents with concern for chest pain. She reports pain started yesterday and was a 9/10. Reports today it is 3/10. She reports the pain starts between her left-sided neck and left-sided shoulder. Reports she has some pain in the left arm and tingling in her left fingers. She denies injury or trauma to the neck, chest. She denies cough. Reports occasional shortness of breath. She reports history of anxiety, she takes medication for anxiety. She denies nausea, vomiting. She denies upper respiratory infection symptoms MD elicited complaint: chest pain Related Data Home Medications Medication Instructions Recorded Confirmed aripiprazole 2 mg tablet mg 02/21/22 duloxetine 40 mg capsule,delayed 40 mg PO AC 01/24/23 07/22/23 release Allergies Allergy/AdvReac Type Severity Reaction Status Date / Time No Known Allergies Allergy Unknown Verified 07/22/23 12:56 Review of Systems Review of Systems: CONSTITUTIONAL: Denies malaise, chills, sweats, or fever. EYES: Denies visual changes, redness, or discharge. ENT: Denies rhinorrhea, congestion, sinus pain, otalgia or sore throat. CARDIOVASCULAR: Reports chest pain. Denies palpitations or edema. RESPIRATORY: Denies cough or dyspnea. GASTROINTESTINAL: Denies abdominal pain, nausea, vomiting SKIN: Denies rash or itching, bruising, redness MUSCULOSKELETAL: Reports pain between the left neck and shoulder NEUROLOGIC: Denies numbness, weakness. Reports tingling in her left fingers PSYCHIATRIC: Reports anxiety All systems reviewed & are unremarkable except as noted in HPI and below PMFSH Past Medical History Medical History Anxiety Depression Hypercholesterolemia Surgical History Surgical History History of hysterectomy Normal colonoscopy Family History Family History Mother Patient's mother is in good health Hypertension Father Patient's father is in good health Family history of heart disease in male family member before age 55 Grandparent Acute myocardial infarction Grandparent Family history of coronary artery disease Other Family history of malignant neoplasm of cervix Family history of malignant neoplasm of uterus Social History Social History Smoking status: Current every day smoker Alcohol intake: never Substance use: never Gender identity (if verbalized by the patient): Female Comments At time of signature, agree with nursing past medical, surgical, social and family history. There is no relevant family history pertinent to the presenting complaint Exam Narrative: GENERAL: Well-appearing, well-nourished, and in no acute distress. HEAD: Normocephalic, atraumatic. EYES: PERRLA, sclera clear, and EOMI. No nystagmus. ENT: Nares clear, turbinates pink, no rhinorrhea or epistaxis. Mucous membranes moist. NECK: Supple. No lymphadenopathy. No jugular venous distension, thyromegaly, or carotid bruits. Carotids were easily palpable bilaterally. CHEST: No respiratory distress. Clear to auscultation. No bony deformities, no asymmetry. Speaks in full sentences. HEART: Regular rate and rhythm. No murmur heard. Normal peripheral pulses. EXTREMITIES: Normal range of motion. No edema. Normal strength and sensation. SKIN: Warm, dry, no visible rash. NEURO: Alert and oriented x3. No focal deficits. Cranial nerves II through XII grossly intact PSYCH: Anxious Course Course Emergency Course: Discussed exam an EKG findings with the patient. Advised that Opal bell
[2023-07-22 12:57] VITALS: BP 127/75; PULSE 106; RESP 26; TEMP 36.2; O2SAT 100
== END 2023-07-22 13:40 | disposition home or self-care (01) ==
PROVIDERS: Emergency Provider Nurse Practitioner; PCP Nurse Practitioner Family
DX: R07.9 Chest pain, unspecified (principal); R94.31 Abnormal electrocardiogram [ECG] [EKG]; F17.200 Nicotine dependence, unspecified, uncomplicated; E78.00 Pure hypercholesterolemia, unspecified
CPT/HCPCS: 93005; 99213; G0463

== ENCOUNTER 2024-02-11 13:56 | Outpatient (CLI) | payer OTHER, SELFPAY ==
--- NOTE | ~2024-02-11 | CT_ITS ---
CT Scan of the Chest without Contrast: Clinical Indication: Lung cancer screening, nicotine dependence Technique: Contiguous sections were acquired throughout the chest without intravenous contrast. Dose reduction technique was used on this scan by utilizing automated exposure control and iterative recon struction technique. The dose-length product (DLP) was 84.08 mGy-cm. Findings: There is no evidence of any significant mediastinal, hilar or axillary lymphadenopathy. Calcified med iastinal and right hilar lymph nodes are present. There is no evidence of pleural or pericardial effusion. The lungs are clear. No pulmonary nodules or infiltrates are noted. Images through the upper abdomen reveal no abnormalities. Impression: Lung RADS 1: Negative. 12 month follow-up screening CT advised. Reviewed, dictated and finalized at location . Impression: Lung RADS 1: Negative. 12 month follow-up screening CT advised.
== END 2024-02-11 13:57 | disposition home or self-care (01) ==
LOC: ANHIMG 14:01
PROVIDERS: PCP Nurse Practitioner Family; Visit Provider Nurse Practitioner Family
DX: Z12.2 Encounter for screening for malignant neoplasm of respiratory organs (principal); F17.210 Nicotine dependence, cigarettes, uncomplicated
CPT/HCPCS: 71271

== ENCOUNTER 2024-05-01 17:20 | Emergency (ER) | payer OTHER, SELFPAY ==
--- NOTE | ~2024-05-01 | XR_ITS ---
EXAMINATION: XR chest 2V DATE: 05/01/2024 17:58 INDICATION: Chest pain. Hypertension. TECHNIQUE: Frontal and lateral views of the chest were obtained. COMPARISON: Chest 2 views 01/29/2020 FINDINGS: There is mild atelectasis in left lower lung zone. A calcified right lung nodule is consist ent with old granulomatous disease. No pleural effusion or pneumothorax. The heart size is normal. IMPRESSION: 1. Mild atelectasis in left lower lung zone. Reviewed, dictated and finalized at location A. [employer]ER
[2024-05-01 17:22] VITALS: BP 182/95; PULSE 74; RESP 20; TEMP 36.4; O2SAT 98
--- NOTE | 2024-05-01 17:23 | ECG_ITS ---
Test Date: 2024-05-01 17:35:09 Measurements Intervals [place] Rate: 62 P: 39 MA: 142 QRS: 2 QRSD: 98 T: 103 QT: 378 QTc: 387 Interpretive Statements SINUS RHYTHM LEFT VENTRICULAR HYPERTROPHY WITH ST-T CHANGE CONSIDER ANTERIOR INFARCT, AGE INDETERMINATE CONSIDER INFERIOR INFARCT, AGE INDETERMINATE NONSPECIFIC ST & T-WAVE ABNORMALITY- LATERAL LEADS ABNORMAL ECG No previous ECG available for comparison Electronically Signed On 05-01-2024 19:00:34 ADVERTISING TRAFFIC MANAGER by Aakash Mao D.O.
[2024-05-01 17:36] LABS: Basophils Absolute Auto 0.1 K/mm3 (0.0-0.1); Basophils Percent Auto 0.7 % (0.2-1.2); Eosinophils Absolute Auto 0.2 K/mm3 (0-0.3); Eosinophils Percent Auto 1.3 % (0-4.4); Hematocrit 49.1 % (37.0-47.0); Hemoglobin 16.5 g/dL (12.0-15.0); Immature Granulocyte Absolute 0.04 K/mm3 (0.00-0.031); Immature Granulocyte Percent A 0.3 % (0-0.5); Lymphocytes Absolute Auto 3.56 K/mm3 (0.9-3.2); Mean Corpuscular HGB Conc 33.6 g/dl (32-36); Mean Corpuscular Hemoglobin 32.6 pg (26-34); Mean Platelet Volume 9.6 fl (7.4-10.4); Monocytes Absolute Auto 1.1 K/mm3 (0.1-0.6); Monocytes Percent Auto 8.8 % (2.6-8.5); Neutrophils Absolute Auto 7.4 K/mm3 (1.3-6.7); Neutrophils Percent Auto 59.9 % (45.5-73.1); Platelet Count Result 403 k/mm3 (150-375); Red Blood Count 5.06 M/mm3 (4.2-5.4); Red Cell Distribution Width 13.4 % (11.5-14.5); White Blood Count 12.3 K/mm3 (4.5-10.0)
[2024-05-01 17:45] LABS: Alanine Aminotransferase 22 U/L (6-35); Alkaline Phosphatase 113 U/L (38-126); Anion Gap 9 mmol/L (4-12); Aspartate Amino Transferase 29 U/L (14-36); Bilirubin,Total 1.3 mg/dL (0.2-1.3); Blood Urea Nitrogen 11 mg/dL (7-17); Calcium 9.9 mg/dL (8.4-10.2); Carbon Dioxide 26 mmol/L (22-30); Chloride 104 mmol/L (98-107); Estimated CRCL calculation 74 ml/min; Estimated Glomerular Filt Rate > 60; Glucose 115 mg/dL (65-110); Lipase 78 U/L (23-300); Potassium 3.5 mmol/L (3.4-5.0); Sodium 139 mmol/L (137-145)
[2024-05-01 17:53] LABS: INR 0.9; Prothrombin Time 12.8 Seconds (11.1-14.7)
[2024-05-01 17:54] LABS: Partial Thromboplastin Time 27.5 Seconds (22.3-36.8)
[2024-05-01 17:56] LABS: Troponin I < 0.012 ng/mL (0.000-0.034)
--- NOTE | 2024-05-01 22:41 | PC.NURSE ---
Patient not found when called for in the lobby.
== END 2024-05-01 23:09 | disposition left against medical advice (07) ==
LOC: ANHED 22:56
PROVIDERS: Emergency Provider Emergency Medicine; PCP Nurse Practitioner Family
DX: R06.02 Shortness of breath (principal)
CPT/HCPCS: 36415; 71046; 80053; 83690; 84484; 85025; 85610; 85730; 93005; 99199

== ENCOUNTER 2024-11-09 10:29 | Emergency (ER) | payer OTHER, SELFPAY ==
[2024-11-09 10:35] VITALS: BP 154/77; PULSE 77; RESP 18; TEMP 36.4; O2SAT 97
--- OUTSIDE RECORDS SUMMARY | 2024-11-09 11:03 | XMS_ITS | Continuity of Care Document ---
Author Organization [facility] Address [address] [place] [id number] Phone Care Team Providers Care Hotel Services Supervisor Name Role Phone Arnel Balderas MD Unavailable Unavailable Allergies, Adverse Reactions, Alerts Substance Reaction Status Criticality No Known Allergies Active No Inform ation Medications Medication Instructions Dosage Effective Dates (start - stop) Status Comments Lamictal 100 mg tablet take 1 tablet by oral route every day 100 MG - Active Lipitor 40 mg tablet take 1 tablet by oral route every day 40 MG - Active Percocet 10 mg-325 mg tablet take 1 tablet by oral route 3 times every day as needed 1 tablet - Active avoid drivin g or operat emachines Celexa 20 mg tablet take 1 tablet by oral route every day 20 MG - Active trazodone 150 mg tablet take 1 tablet by oral route every day at bedtime - Active Procedures Procedure Date OFFICE/OUTPATIENT VISIT, EST OFFICE/OUTPATIENT VISIT, EST OFFICE/OUTPATIENT VISIT, EST OFFICE/OUTPATIENT VISIT, EST OFFICE/OUTPATIENT VISIT, EST PREV VISIT, EST, AGE 40-64 OFFICE/OUTPATIENT VISIT, EST OFFICE/OUTPATIENT VISIT, EST OFFICE/OUTPATIENT VISIT, EST OFFICE/OUTPATIENT VISIT, EST OFFICE/OUTPATIENT VISIT, EST OFFICE/OUTPATIENT VISIT, EST OFFICE/OUTPATIENT VISIT, EST OFFICE/OUTPATIENT VISIT, EST OFFICE/OUTPATIENT VISIT, EST OFFICE/OUTPATIENT VISIT, EST OFFICE/OUTPATIENT VISIT, EST OFFICE/OUTPATIENT VISIT, EST OFFICE/OUTPATIENT VISIT, EST PREV VISIT, NEW, AGE 40-64 OFFICE/OUTPATIENT VISIT, NEW Advance Directives Directive Yes / No Effective Date File Name No Information Encounters Encounter Description Practice Location Reason(s) For Visit Diagnoses Date Provider Providers Copied on Encounter [facility], [address], [place], [place], [address], tel:[phone] [facility] No Information Andrey Seals. [address], [place], [place], [address] , [place]. tel:[phone] OFFICE/OUTPA TIENT VISIT, [facility], [address], [place], [place], [address], tel:[phone] [facility] HLP (chief complaint) anxiety1 (chief complaint) back pain1 (chief complaint) insomnia1 (chief complaint) HyperlipidemiaGener alized anxiety disorderChronic pain syndromeInsomnia 7 Andrey Seals. [address], [place], [place], [address] , [place]. tel:[phone] Referring Provider: Katelynn Ladd [address], [place], [place], [address]. tel:[phone] OFFICE/OUTPA TIENT VISIT, [facility], [address], [place], [place], [address], [place] tel:[phone] [facility] HLP (chief complaint) anxiety1 (chief complaint) back pain1 (chief complaint) HyperlipidemiaGener alized anxiety disorderChronic pain syndrome 7 Andrey Seals. [address], [place], [place], [address] , [place]. tel:[phone] Referring Provider: Katelynn Ladd [address], [place], [place], [address]. tel:[phone] OFFICE/OUTPA TIENT VISIT, EST [facility], [address], [place], [place], [address], [place] tel:[phone] [facility] HLP (chief complaint) anxiety1 (chief complaint) back pain1 (chief complaint) insomnia1 (chief complaint) HyperlipidemiaChron ic pain syndromeInsomniaGen eralized anxiety disorder 7 Andrey Seals. [address], [place], [place], [address] , [place]. [phone] Referring Provider: Katelynn Ladd [address], [place], [place], [address]. tel:[phone] OFFICE/OUTPA TIENT VISIT, [facility], [address], [place], [place], [address], [place] tel:[phone] [facility] HLP (chief complaint) UTI1 (chief complaint) anxiety1 (chief complaint) wbc (chief complaint) HyperlipidemiaLeuko cytosisInsomniaGene ralized anxiety disorder 7 Andrey Seals. [address], [place], [place], [address] , [place]. tel:[phone] Referring Provider: Katelynn Ladd [address], [place], [place], [address]. tel:[phone] OFFICE/OUTPA TIENT VISIT, EST [facility], [address], [place], [place], [address], [place] tel:[phone] [facility] facial rash1 (chief complaint) Rash Dec-0 6 Andrey Seals. [address], [place], [place], [address] , [place]. tel:[phone] Referring Provider: Katelynn Ladd [address], [place], [place], [address]. tel:[phone] PREV VISIT, EST, AGE 40-64 [facility], [address], [place], [place], [address], [place] tel:[phone] [facility] Medicine PHysical (chief complaint) Encounter for general adult medical exam w abnormal findingsChest painChronic pain syndromeInsomnia 6 Andrey Connolly [address], [place], [place], [address] , [place]. tel:[phone] Referring Provider: Katelynn Ladd [address], [place], [place], [address]. tel:[phone] OFFICE/OUTPA TIENT VISIT, [facility], [address], [place], [place], [address], [place] tel:[phone] [facility] chest pain1 (chief complaint) anxiety1 (chief complaint) back pain1 (chief complaint) insomnia1 (chief complaint) Chest painGeneralized anxiety disorderChronic pain syndromeOther insomnia 6 Andrey Connolly [address], [place], [place], [address] , [place]. tel:[phone] Referring Provider: Katelynn Ladd [facility] [address], [place], [place], [address]. tel:[phone] OFFICE/OUTPA TIENT VISIT, [facility], [address], [place], [place], [address], [place] tel:[phone] [facility] headache1 (chief complaint) anxiety1 (chief complaint) back pain1 (chief complaint) HTN (chief complaint) HeadacheEssential (primary) hypertensionChronic pain syndromeGeneralized Anxiety Disorder Sep-3 6 Andrey Banks[address], [place], [place], [address] , [place]. tel:[phone] Referring Provider: Katelynn Ladd [address], [place], [place], [address]. tel:[phone] OFFICE/OUTPA TIENT VISIT, [facility], [address], [place], [place], [address], [place] tel:[phone] [facility] wieght gain (chief complaint) chronic pain (chief complaint) anxiety1 (chief complaint) HLP (chief complaint) Abnormal weight gainGeneralized Anxiety DisorderChronic pain syndromeHyperlipide destin Sep-0 - 6 Andrey Seals. [address], [place], [place], [address] , [place]. tel:[phone] Referring Provider: Katelynn Ladd [address], [place], [place], [address]. tel:[phone] OFFICE/OUTPA TIENT VISIT, [facility], [address], [place], [place], [address], [place] tel:[phone] [facility] back apin1 (chief complaint) insomnia1 (chief complaint) headache1 (chief complaint) Other insomniaGeneralized Anxiety DisorderOther spondylosis, lumbar regionHeadache 6 Andrey Seals. [address], [place], [place], [address] , [place]. [phone] Referring Provider: Katelynn Ladd [address], [place], [place], [address]. tel:[phone] OFFICE/OUTPA TIENT VISIT, [facility], [address], [place], [place], [address], [place] tel:[phone] [facility] LBP1 (chief complaint) anxiety1 (chief complaint) headache1 (chief complaint) HeadacheGeneralized Anxiety DisorderChronic pain syndrome 6 Andrey Seals. [address], [place], [place], [address] , [place]. [phone] Referring Provider: Katelynn Ladd [address], [place], [place], [address]. tel:[phone] OFFICE/OUTPA TIENT VISIT, [facility], [address], [place], [place], [address], [place] tel:[phone] [facility] anxiety1 (chief complaint) back pain1 (chief complaint) insomnia1 (chief complaint) Other spondylosis, lumbar regionGeneralized Anxiety DisorderOther insomnia 6 Andrey Seals. [address], [place], [place], [address] , [place]. tel:[phone] Referring Provider: [address], [place], [place], [address]. tel:[phone] OFFICE/OUTPA TIENT VISIT, [facility], [address], [place], [place], [address], [place] tel:[phone] [facility] headache1 (chief complaint) anxiety1 (chief complaint) back pain1 (chief complaint) HeadacheGeneralized Anxiety DisorderChronic pain syndromeEncounter for screening for osteoporosis 6 Andrey Seals. [address], [place], [place], [address] , [place]. tel:[phone] Referring Provider: Katelynn Ladd [address] [facility] [address], [place], [place], [address]. tel:[phone] OFFICE/OUTPA TIENT VISIT, [facility], [address], [place], [place], [address], [place] tel:[phone] [facility] headache1 (chief complaint) back pain1 (chief complaint) anxiety1 (chief complaint) UTI (chief complaint) Urinary tract infectionChronic pain syndromeGeneralized anxiety disorderHeadache 6 Andrey Seals. [address], [place], [place], [address] , [place]. tel:[phone] Referring Provider: Katelynn Ladd [address], [place], [place], [address]. tel:[phone] OFFICE/OUTPA TIENT VISIT, [facility], [address] [place] [place], [address], [place] tel:[phone] [facility] chronic pain (chief complaint) anxiety1 (chief complaint) withdraw (chief complaint) Chronic pain syndromeGeneralized anxiety disorderAnxiolytic dependence w/ withdrawalUrinary tract infection 6 Andrey Seals. [address], [place], [place], [address] , [place]. tel:[phone] Referring Provider: Katelynn Ladd [address], [place], [place], [address]. tel:[phone] OFFICE/OUTPA TIENT VISIT, [facility], [address], [place], [place], [address], [place] tel:[phone] [facility] anxety1 (chief complaint) back pain1 (chief complaint) trazodone1 (chief complaint) rash1 (chief complaint) Other insomniaGeneralized Anxiety DisorderChronic pain syndromeRash 6 Andrey Seals. [address], [place], [place], [address] , [place]. tel:[phone] Referring Provider: Arnel Baldersa, [address], [place], [place], [address]. tel:[phone] OFFICE/OUTPA TIENT VISIT, [facility], [address], [place], [place], [address], [place] tel:[phone] [facility] anxiety1 (chief complaint) insomnia1 (chief complaint) back pain1 (chief complaint) Chronic pain syndromeGeneralized anxiety disorderOther insomnia 5 Andrey Seals. [address], [place], [place], [address] , [place]. [phone] Referring Provider: Katelynn Ladd [address], [place], [place], [address]. tel:[phone] OFFICE/OUTPA TIENT VISIT, [facility], [address], [place], [place], [address], [place] tel:[phone] [facility] UTI1 (chief complaint) HLP (chief complaint) back pain1 (chief complaint) Aniety1 (chief complaint) Metabolic syndromeMixed hyperlipidemiaUrina ry tract infectionOther spondylosis, lumbar region 5 Andrey Seals. [address], [place], [place], [address] , [place]. [phone] Referring Provider: Katelynn Ladd [address], [place], [place], [address]. tel:[phone] PREV VISIT, NEW, AGE 40-64 [facility], [address], [place], [place], [address], [place] tel:[phone] [facility] PHysical (chief complaint) Encounter for general adult medical exam w abnormal findingsOther intervertebral disc displacement, lumbar regionGeneralized anxiety disorder 5 Andrey Seals. [address], [place], [place], [address] , [place]. tel:[phone] Referring Provider: Arnel Balderas [address], [place], [place], [address]. tel:[phone] Family History Family Member Type Diagnosis Age At Onset Father Problem (finding) Alive and well Father Problem (finding) Coronary artery disease Mother Problem (finding) back pain Payers Payer name Insurance type Covered constitution party ID Authoriza tion(s) No Information Social History Type Description Quantity Date Captured Comments Alcohol Use Details Unknown Caffeine Use Details Unknown Tobacco Use Status Smoking Status No Information Sex Female Chief Complaint And Reason For Visit No Information Plan Of Treatment Date Type Action Status Referral Ordered: KAYLEE GARCIA (related to Chest pain) ordered Referral Referred To: KAYLEE GARCIA [id number] [facility]
[address], [id number] Ordered: Referrals: KAYLEE GARCIA. Evaluate and treat ordered Referral Ordered: CHEST X-RAY PA/LAT TWO-VIEWS ordered Referral Ordered: MAMMOGRAM, SCREENING ordered History Of Present Illness Encounter Date Complaint History Of Prese nt Illness HLP Pt has HLP Pt st ates that she has not been taking lipitor? Pt denies any myalgia Pt still eateing poorly .Pt is noncompliant with lab work. Pt states that she does not know why she stopped lipitor anxiety1 Pt has chronic a nxiety and depression Pt has mood swings .Pt takes celexa, lamictal and xanax and doing ok. Pt denies any suicidal or homicdial thought. Pt denies any crying spell, ,Pt steates that her mood is better with lamictal. back pain1 Pt has chronic l ow back pain. Pt denies any loss of bowel or bladder control. pt denies any worsening pain. Pt has bilateral sciatica and leg numbness. Pt has discogenic pain . insomnia1 Pt doing ok with trazodone. Pt denies any snoring or any trouble with breathing at night. Pt denies waking up in the morning and feeling fatigue HLP Pt has HLP Pt ta kes lipitor Pt has not done lab yet pt denies any myalgia anxiety1 Pt has chronic a nxiety and depression and mood swings. Pt was told she has bipolar. Pt has depressive episodes and she sometimes become irritable and she yells at her . Pt denies any suicidal or homicidal thought. Pt has crying spells. Pt also off celexa for unknown reason Pt also is off seroquel. Pt feels more depressed lately. Pt will see counseling soon back pain1 P thas chronic l ow back pain. Pt denies any worsening pain Pt has DDD Pt denies any loss of bladder control HLP Pt has HLP Pt ta kes lipitor Pt denies any myalgia anxiety1 Pt has chronic a nxiety and depression Pt has mood swings .Pt takes celexa and seroquel and xanax Pt states that seroquel is not working for her mood Pt is very irritable. Pt states that her mother in law is causing her problem at home. Pt has a lot of anger and frustrations at home back pain1 Pt has chronic l ow back pain. Pt denies any loss of bowel or bladder control. Pt denies any worsening kaden Pt has 7/10 pain insomnia1 Pt has insomnia. Pt takes trazodone. Pt denies any snoring or any trouble with breathing. HLP Pt has HLP Pt baird s high TC and TG. Pt is not on any diet UTI1 Pt has UTI. Pt t ook levaquin and she denies any symptoms now anxiety1 Pt has chronic a nxiety and depression Pt takes celexa and seroquel and also xanax and doign ok Pt denies any suicidal or homicidal thought. Pt also takes trazodone for insomnia. Pt denies any worsening symptoms wbc Pt has mildly hi gh WBC. Pt denies any fever facial rash1 Pt c/o facial it luh and swelling and burning for 2-3 weeks. Pt went to [facility] and had steroid injection and she is on medrol dose ashley and zyrtec but not working. Pt notices itching eyelid but no eye problem. No drainage or any vision problem. Pt denies any trouble with breathing or swallowing. Pt denies any fever PHysical Pt needs annual physical. Pt has chronic low back pain and is opioid dependent. Pt takes percocet PRN for pain. Pt has chronic anxiety and depression and mood swings with insomnia. Pt takes celexa, seroquel and trazodone and xanax and doing ok. Pt denies any suicidal or homicidal thought. Pt has 7/10 low back pain. Pt has mild sciatiac Pt has mild leg numbness. Pt denies any worsening pain. Pt denies any chest pain and she has not seen cariology or do chest xray yet. chest pain1 Pt c/o intermitt ent chest tightness during last month. Pt denies any diarhoresis Pt denies any radiation of pain to arm or neck. Pt denies any SOB. Pt denies any nandini chest pain. Pt states that the symptmos are not related to any activity or physical exertion. Pt has been going through a lot of stress. Pt denies any acute chest tightness anxiety1 Pt has chronic a nxiety and depression. Pt takes celexa, seroquel and xanax. Pt denies any suicidal or homicidal thought. Pt denies any crying spells. back pain1 Pt has chronic l ow back apin Pt denies any loss of bowel or bladder control. Pt has DDD. Pt is opioid dependent. Pt c/o mild sciatica. Pt denies any loss of bowel or bladder control. insomnia1 Pt has insomnia. Pt takes trazodone qhs and doing ok. Pt denies any snoring or any trouble with breathing at night. headache1 Pt has intermitt ent migraine headache. Pt has throbbing headache with photophobia and nausea 2-3 per month. Pt denies any head injury. Pt states that imitrex helps. Pt denies any worsening headache anxiety1 Pt has chronic a nxiety and depression and insomnia and bipolar mood swings. Pt takes celexa, seroquel and also xanax PRN. Pt doing ok with her mood and insomnia. Pt takes trazodone also. Pt denies any suicidal or homicidal thought. Pt denies any cyring spells back pain1 Pt has chronic l ow back pain. Pt has 6/10 pain. Pt denies any worsening pain. Pt denies any loss of bowel or bladder control. HTN Pt has mild HTN today. Pt denies any chest pain. wieght gain Pt has been gain ing weight. Pt is not very active Pt is not dieting chronic pain Pt has chronic l ow back pain. Pt denies any loss of patricia or bladder control Pt denies any worsening pain. Pt denies any scaitica anxiety1 Pt has chronic a nxeity and depression Pt has insomnia Pt takes celexa, seroquel and xanax Pt denies any suicidal or homicdial thought HLP Pt has high TG a nd she has mildly high glucose pt denies any polyuria, polydipsia Pt is not diet and exercise. back apin1 Pt has chronic l ow back pain Pt states that she has been having worsening pain. Pt had to wake up in the middle of the night and take more percocet. Pt denies any injury. insomnia1 Pt has been taki ng trazodone and seroquel but still has difficulty falling asleep. Pt has been taking extra xanax also at night for insomnia headache1 Pt has chronic m igraine headache Pt states that imtirex 100 is too strong and she has been cutting to 50 mg to take for her headache, which works very well. Pt has headache 2-3 per month with photophobia and nausea Pt denies anyacute headache or head injury LBP1 Pt has chronic l ow back pain. Pt denies any loss of bowel or bladder control. Pt takes percocet for pain and doing ok. Pt denies any worsenign pain. Pt denies any sciatica or any numbness. anxiety1 Pt has chornic a nxiety and depression. Pt takes celexa, xanax and seroquel. Pt doing ok currently. Pt denies any suicidal or homicdial thought. headache1 Pt has history o f migraine and she did well with imitrex. Pt statse that she no longer has headache now. Pt denies any head injury anxiety1 Pt has chronic a nxizety and depression and mood swings. pt takes celexa, xanax and seroquel and doing ok pt denies any suicidal or homicdial thought. Pt denies anyc rying spells back pain1 Pt has chornic l ow back pain Pt denies any loss of bowel or bladde control. Pt denies any sciatica or any numbness. Pt denies any worsening kaden insomnia1 Pt has insomnia. Pt takes trazodone pt denies any snoring or any trouble with breathing at night headache1 Pt has been havi ng frontal headache. Pt states that imitrex does help. Pt has headache dailyi. pt states that she lost her glass and her eye issue is causing her headache Pt is in the process of getting eye glass fixed. Pt denies any head injury. Pt denies any nauea, Pt has photophobia anxiety1 Pt has chronic a nxiety and depression and mood swings. Pt is takign celexa, xanax and seroquel and doing ok Pt denies any suicidal or homicdial thought. Pt denies any cyring spells. Her home situation is better back pain1 Pt has chronic L BP Pt denies any loss of bowel or bladde control or worsening pain Pt denies any numbness. Pt failed NSAID UTI Additional infor mation: PT denies any UTI symptoms now. Pt states that she has uTI symptoms everytime she has sex. headache1 Pt has been havi ng migraine hedache for the past several weeks. Pt denies any nasuea, vomiting, head injury. Pt has been having a lot of stress back pain1 Pt has chronic l ow back pain. PT denies any loss of owel or bladder control. Pt denies any worsening pain. anxiety1 Pt has chronic a nxiety and depression and mood swings. Pt has a lot of stress. Her son is involved with drugs. Pt denies any suicidal or homicidal thought. Pt denies any crying spells. chronic pain Pt has chronic l ow back pain. Pt denies any loss of bowel or bladder control. Pt denies any worsening pain. Pt has mild sciatica and leg numbness. anxiety1 Pt has chronic a nxiety and depression. Pt takes celexa and xanax and doing ok. Pt denies any suicidal or homicidal thought. Pt states that seroquel and trazodone work ok with her mood and insomnia withdraw Pt recently trie d to get off xanax on her own and she stopped taking xanax abruptly and developped some type of mental confusion, aggression, agitation state. Her took her to [facility] where she was admitted. Pt had negative head CT. Pt was diagnosed with acute xanax withdraw and also UTI. PT had mild UTI and she was treated with levaquin. Pt was also treated for hypokalemia and also her initial leukocytosis did come back towards the end of her hospitalization. Pt currently feeling ok. Pt denies any chest pain, mental status change, headache, etc Pt states that she was given some ativan from hospital but is not working. Pt states that she wants to get back on xanax. Pt denies any suicidal or homicidal thought or any headache or any mental status change now anxety1 Pt has chronic a nxiety and depression. Pt takes celexa and xanax pt deniess any suicidal or homicidal thought. Pt denies any crying spells. Pt statse that she has a lot of paranoia and she has mood swings. Pt wants to try medicine for that. Pt was told she has bipolar in the past back pain1 Pt has chronic l ow back pain. Pt denies any loss of bowel or bladder control. Pt c/o left sciatica/ Pt c/o mild left leg numnbess. trazodone1 Pt has insomnia. Pt states that trazodone 100 mg did not work. Pt used to take 200 mg trazodone which worked. Pt denies any snoring. rash1 Pt c/o mild irri tating rash under right breast for several weeks. Pt states that her breast dangles down and she has a lot of sweat. Pt denies any drainage Pt denies any pain anxiety1 Pt has chronic a nxiety and depression. Pt takes celexa and xanax. Pt denies any sucidal thought Pt denies any crying spells. Pt denies any feeling of hopelessness. insomnia1 Pt has insomnia. Pt used to take trazodone but is out Pt does have snoring but denies any trouble with breathing at night. Pt has trouble falling alsleep. Pt feels fatigue in the morning sometimes back pain1 Pt has chronic l ow back pain with left sciatica and some left leg numbness. Pt denies any worsening pain or any symptoms Pt denies any injury. Pt takes percocet for pain back pain1 Pt has low low b ack pain with left scaiatica and left leg numbness. Her MRI showed interval worsening of spondylosis. Pt denies any loss of bowel or bladder control. Pt has 7/10 pain pt failed pain injection in the past Aniety1 Pt has chronic a nxiety and depression. Pt takes celexa and xanax. Pt denies any suicidal or homicidal thought Pt denies any crying spells UTI1 Pt has UTI. Pt d enies any UTI symptoms, Pt states that she did have history of frequent UTIs. Pt denies any flank pain. HLP Pt has mildly el evated TG. Her A1c is slightly elevated Pt denies any polyuria, polydipsia. PHysical Pt needs annual physical. Pt has chornic low back pain. Pt c/o left sciatica and left leg numnbess and tingling. Her pain is getting worse Pt has 7/10 pain. Pt had MRI done two years ago. Pt is on percocoet for pain. Pt stats that she has pain all the time. Pt also has chronic anxiety and depression. Pt takes xanaax and celexa. pt used to see psychiatrist and neurology but she did not like both above and she is looking for PCP to treat her. Pt denies any other complaitns Instructions Date Instruction Additional Infor mation Prescribed Diet Educ ation/Lifestyle Education Regarding Diet Related to Dietary Surveillance and Counseling Prescribed Activity and Exercise Education Related to Dietary Surveillance and Counseling Prescribed Diet Educ ation/Lifestyle Education Regarding Diet Related to Dietary Surveillance and Counseling Prescribed Activity and Exercise Education Related to Dietary Surveillance and Counseling Prescribed Activity and Exercise Education Related to Dietary Surveillance and Counseling Prescribed Diet Educ ation/Lifestyle Education Regarding Diet Related to Dietary Surveillance and Counseling Prescribed Diet Educ ation/Lifestyle Education Regarding Diet Related to Dietary Surveillance and Counseling Prescribed Activity and Exercise Education Related to Dietary Surveillance and Counseling Prescribed Diet Educ ation/Lifestyle Education Regarding Diet Related to Dietary Surveillance and Counseling Prescribed Activity and Exercise Education Related to Dietary Surveillance and Counseling Prescribed Diet Educ ation/Lifestyle Education Regarding Diet Related to Dietary Surveillance and Counseling Prescribed Activity and Exercise Education Related to Dietary Surveillance and Counseling Prescribed Activity and Exercise Education Related to Dietary Surveillance and Counseling Prescribed Diet Educ ation/Lifestyle Education Regarding Diet Related to Dietary Surveillance and Counseling Prescribed Activity and Exercise Education Related to Dietary Surveillance and Counseling Prescribed Diet Educ ation/Lifestyle Education Regarding Diet Related to Dietary Surveillance and Counseling Prescribed Diet Educ ation/Lifestyle Education Regarding Diet Related to Dietary Surveillance and Counseling Prescribed Activity and Exercise Education Related to Dietary Surveillance and Counseling Prescribed Diet Educ ation/Lifestyle Education Regarding Diet Related to Dietary Surveillance and Counseling Prescribed Activity and Exercise Education Related to Dietary Surveillance and Counseling Prescribed Activity and Exercise Education Related to Dietary Surveillance and Counseling Prescribed Diet Educ ation/Lifestyle Education Regarding Diet Related to Dietary Surveillance and Counseling Prescribed Activity and Exercise Education Related to Dietary Surveillance and Counseling Prescribed Diet Educ ation/Lifestyle Education Regarding Diet Related to Dietary Surveillance and Counseling Prescribed Activity and Exercise Education Related to Dietary Surveillance and Counseling Prescribed Diet Educ ation/Lifestyle Education Regarding Diet Related to Dietary Surveillance and Counseling Prescribed Activity and Exercise Education Related to Dietary Surveillance and Counseling Prescribed Diet Educ ation/Lifestyle Education Regarding Diet Related to Dietary Surveillance and Counseling Prescribed Diet Educ ation/Lifestyle Education Regarding Diet Related to Dietary Surveillance and Counseling Prescribed Activity and Exercise Education Related to Dietary Surveillance and Counseling Prescribed Activity and Exercise Education Related to Dietary Surveillance and Counseling Prescribed Diet Educ ation/Lifestyle Education Regarding Diet Related to Dietary Surveillance and Counseling Assessments Type Assessment Date No Information
--- OUTSIDE RECORDS SUMMARY | 2024-11-09 11:03 | XMS_ITS | Continuity of Care Document ---
Author [facility] Address [address] [address] [place] [address] Phone Care Team Providers Care Endocrinology Specialist Name Role Phone Luciano GÓMEZ, Flora Unavailable Unavailable Procedures Procedure Date No Charge Visit Advance Directives Directive Yes / No Effective Date File Name No Information Encounters Encounter Description Practice Location Reason(s) For Visit Diagnoses Date Provider Providers Copied on Encounter [facility], [address], [place], [place], [address], tel:[phone] OPH CONSULT [facility] No Information 5 Luciano Hines. [address] [facility] [facility] [address], [place], [place], [address] , [place]. tel:[phone] Referring Provider: Flora Valentino, [address] [facility] [address], [place], [address] . tel:[phone] Family History Family Member Type Diagnosis Age At Onset No Information Payers Payer name Insurance type Covered republican ID Authoriza tion(s) [employer]/ [employer] Social History Type Description Quantity Date Captured Comments Sex Female Smoking Status No Information Chief Complaint And Reason For Visit No Information Reason For Referral Reason For Referral No Information History Of Present Illness Encounter Date Complaint History Of Prese nt Illness No Information Functional Status Date Functional Assessmen t No Information Instructions Date Instruction Additional Infor mation No Information Assessments Type Assessment Date No Information Patient Care Teams Name Effective Dates (start - stop) Status Members No Information
--- OUTSIDE RECORDS SUMMARY | 2024-11-09 11:03 | XMS_ITS | Clinical Summary ---
Author Organization [facility] Address [address] [place] [address] Phone Care Team Providers Care Supervisor Boiler Repair Name Role Phone Chidi Mott MD Primary Care Provider [phone] Allergies No known active allergies Medications atorvastatin (LIPITOR) 40 MG Tablet Take 40 mg by mouth daily. 3 9 Active cholestyramine (QUESTRAN) 4 GM/DOSE Powder Take 4 g by mouth Daily as needed. 9 Active promethazine (PHENERGAN) 25 MG Tablet Take 25 mg by mouth every 6 hours as needed. 9 Active SUMAtriptan (IMITREX) 100 MG Tablet Take 100 mg by mouth as needed. 9 Active triamcinolone (KENALOG) 0.1 % Cream Apply 0.1 Tubes as needed. 9 Active ciprofloxacin (CIPRO) 500 MG Tablet Take 500 mg by mouth as needed. Active metaxalone (SKELAXIN) 800 MG Tablet Take 800 mg by mouth 3 times daily. Active omeprazole (PRILOSEC) 40 MG CAPSULE DELAYED RELEASE Take 40 mg by mouth daily. Active Buprenorphine HCl-Naloxone HCl 5.7-1.4 MG SL Tablet 5.7 Tabs by Sublingual route daily. Active Family History Relation Name Status Comments Brother Alive Father Alive Mother Alive Social History Tobacco Use Types Packs/Day Years Used Date Smoking Tobacco: Every Day Cigarettes 1 40 Smokeless Tobacco: Never Tobacco Cessation:Ready to Q uit: No Alcohol Use Standard Drinks/Week Comments Not Currently 0 (1 standard drink = 0.6 oz pur e alcohol) AUDIT-C Answer Date Recorded Frequency of Alcohol Consumption Never 03/02/2019 Average Number of Drinks Not on file 019 Frequency of Binge Drinking Not on file 02/09 PHQ-2 Answer Date Recorded PHQ-2 Score 0 03/02/2019 Comments Unknown Sex and Gender Information Value Date Recorded Sex Assigned at Not on file Legal Sex Female 12:30 PM CDT Gender Identity Not on file Sexual Orientation Not on file Last Filed Vital Signs Vital Sign Reading Time Taken Comments Blood Pressure 128/76 03/02/2019 2:56 PM CDT Pulse 73 03/02/2019 2:56 PM CDT Temperature 36.1 C (97 F) 03/02/2019 2:56 PM CDT Respiratory Rate 73 03/02/2019 2:56 PM CDT Oxygen Saturation - - Inhaled Oxygen Concentration - - Weight 72.7 kg (160 lb 3.2 oz) 03/02/2019 2:56 P M CDT Height 160 cm (5' 3) 03/02/2019 2:56 PM CDT Body Mass Index 28.38 03/02/2019 2:56 PM CDT Plan of Treatment Health Maintenance Due Date Last Done Comments Colonoscopy 02/25/2009 Colorectal Cancer Screening 02/25/2009 Cologuard 02/25/2014 Immunochemical Fecal Occult Blood 02/25/2014 Pneumococcal Immunization (5 0+ years) (1 of 1 - PCV) 02/25/2014 Zoster Immunization (1 of 2) 02/25/2014 Influenza Immunization (#1) 2024 SARS-COV-2 Immunization (2023-25 season) 2024 Respiratory Syncytial Virus (RSV) Immunization (Adult) (1 - 1-dose 75+ series) 02/25/2039 DTaP/Tdap/Td Immunization Discontinued 06/26/2018 TdaP Immunization Completed 06/26/2018 Hepatitis C Virus (HCV) Screening Completed 019 Hepatitis B Immunization Aged Out No longer eligible based on patient's age to complete this topic Meningococcal Immunization (ACWY) Aged Out No longer eligible based on patient's age to complete this topic Rotavirus Immunization Aged Out No lo nger eligible based on patient's age to complete this topic Insurance [employer] [facility] Care Teams Supervisor Boiler Repair Relationship Specialty Start Date End Date Chidi Mott MD [address] [facility] [address] [place] [address] PCP - General Family Medicine 02/16/19
--- NOTE | 2024-11-09 11:17 | PC.NURSE ---
when walking in the room pt states she wants to leave. she states her blood pressure is better than it was and states she is just anxious. pt states she called her pcp and they told her she could come in to the office today. pt states she will return to the nearest ER if her symptoms are worse. pt ambulated out of ED with steady gait.
--- OUTSIDE RECORDS SUMMARY | 2024-11-09 11:55 | XMS_ITS | CONTINUITY OF CARE DOCUMENT ---
Author Name barbarasouravkaro Address Unknown Organization [facility] Address [address] [place] [address] Phone [phone] Care Team Providers Care Harbor Department Manager Name Role Phone Timur Wilson MD Unavailable [phone] WANDY STAPLES MD Unavailable [phone] WANDY STAPLES MD Unavailable [phone] INSURANCE PROVIDERS Payer name Policy type / Coverage type [place] red republican ID [employer] insurance [employer] [id number]
--- OUTSIDE RECORDS SUMMARY | 2024-11-09 11:55 | XMS_ITS | Clinical Summary ---
Author Organization [facility] Address [address] [place] [address] Phone Care Team Providers Care Apparel Machinery Instructor Name Role Phone Chidi Mott MD Primary Care Provider [phone] Allergies No known active allergies Medications atorvastatin [...] age to complete this topic Insurance AETNA [facility] Care Teams Apparel Machinery Instructor Relationship Specialty Start Date End Date Chidi Mott MD [address] [facility] [address] [place] [address] PCP - General Family Medicine 02/16/19
--- OUTSIDE RECORDS SUMMARY | 2024-11-09 11:55 | XMS_ITS | Continuity of Care Document ---
Author Organization [facility] Address [address] [facility] [address] [place] [address] Phone Care Team Providers Care Assembler Piano Name Role Phone Luciano GÓMEZ, Flora Unavailable Unavailable Procedures Procedure Date No Charge Visit Advance Directives Directive Yes / No Effective Date File Name No Information Encounters Encounter Description Practice Location Reason(s) For Visit Diagnoses Date Provider Providers Copied on Encounter [facility], [address] [facility] [address], [place], [place], [address], tel:[phone] OPH CONSULT [facility] No Information 5 Luciano Hines. [address] [facility] [facility] [address], [place], [place], [address] , [place]. tel:[phone] Referring Provider: Flora Valentino, [address] [facility] [address], [place], [address] . tel:[phone] Family History Family Member Type Diagnosis Age At Onset No Information Payers Payer name Insurance type Covered alliance party ID Authoriza tion(s) [employer]/ [employer] [...]
--- OUTSIDE RECORDS SUMMARY | 2024-11-09 11:55 | XMS_ITS | Continuity of Care Document ---
Author Organization [facility] Address [address] [place] [address] Phone Care Team Providers Care Beauty School Instructor Name Role Phone Arnel Balderas MD Unavailable Unavailable Allergies, Adverse Reactions, Alerts Substance Reaction Status Criticality No Known Allergies Active No Inform ation Medications Medication Instructions Dosage Effective Dates (start - stop) Status Comments Percocet 10 mg-325 mg tablet take 1 tablet by oral route 3 times every day as needed 1 tablet - Active avoid drivin g or operat emachines Lipitor 40 mg tablet take 1 tablet by oral route every day 40 MG - Active Lamictal 100 mg tablet take 1 tablet by oral route every day 100 MG - Active Celexa 20 mg tablet take 1 tablet [...] Diagnoses Date Provider Providers Copied on Encounter [facility], [address], [place], [place], [address], tel:[phone] [facility] No Information Andrey Seals. [address], [place], [place], [address] , [place]. tel:[phone] OFFICE/OUTPA TIENT VISIT, [facility], [address], [place], [place], [address], tel:[phone] [facility] HLP (chief complaint) anxiety1 (chief complaint) back pain1 (chief complaint) insomnia1 (chief complaint) HyperlipidemiaGener alized anxiety disorderChronic pain syndromeInsomnia 7 Andrey Seals. [address], [place], [place], [address] , [place]. tel:[phone] Referring Provider: Katelynn Ladd [address], [place], [place], [address]. tel:[phone] OFFICE/OUTPA TIENT VISIT, [facility], [address], [place], [place], [address], [place] tel:[phone] [facility] HLP (chief complaint) anxiety1 (chief complaint) back pain1 (chief complaint) HyperlipidemiaGener alized anxiety disorderChronic pain syndrome 7 Andrey Seals. [address], [place], [place], [address] , [place]. tel:[phone] Referring Provider: Katelynn Ladd [address], [place], [place], [address]. tel:[phone] OFFICE/OUTPA TIENT VISIT, EST [facility], [address], [place], [place], [address], [place] tel:[phone] [facility] HLP (chief complaint) anxiety1 (chief complaint) back pain1 (chief complaint) insomnia1 (chief complaint) HyperlipidemiaChron ic pain syndromeInsomniaGen eralized anxiety disorder 7 Andrey Seals. [address], [place], [place], [address] , [place]. [phone] Referring Provider: Katelynn Ladd [address], [place], [place], [address]. tel:[phone] OFFICE/OUTPA TIENT VISIT, [facility], [address], [place], [place], [address], [place] tel:[phone] [facility] HLP (chief complaint) UTI1 (chief complaint) anxiety1 (chief complaint) wbc (chief complaint) HyperlipidemiaLeuko cytosisInsomniaGene ralized anxiety disorder 7 Andrey Seals. [address], [place], [place], [address] , [place]. tel:[phone] Referring Provider: Katelynn Ladd [address], [place], [place], [address]. tel:[phone] OFFICE/OUTPA TIENT VISIT, EST [facility], [address], [place], [place], [address], [place] tel:[phone] [facility] facial rash1 (chief complaint) Rash Dec-0 6 Andrey Seals. [address], [place], [place], [address] , [place]. tel:[phone] Referring Provider: Katelynn Ladd [address], [place], [place], [address]. tel:[phone] PREV VISIT, EST, AGE 40-64 [facility], [address], [place], [place], [address], [place] tel:[phone] [facility] Medicine PHysical (chief complaint) Encounter for general adult medical exam w abnormal findingsChest painChronic pain syndromeInsomnia 6 Andrey Connolly [address], [place], [place], [address] , [place]. tel:[phone] Referring Provider: Katelynn Ladd [address], [place], [place], [address]. tel:[phone] OFFICE/OUTPA TIENT VISIT, [facility], [address], [place], [place], [address], [place] tel:[phone] [facility] chest pain1 (chief complaint) anxiety1 (chief complaint) back pain1 (chief complaint) insomnia1 (chief complaint) Chest painGeneralized anxiety disorderChronic pain syndromeOther insomnia 6 Andrey Connolly [address], [place], [place], [address] , [place]. tel:[phone] Referring Provider: Katelynn Ladd [facility] [address], [place], [place], [address]. tel:[phone] OFFICE/OUTPA TIENT VISIT, [facility], [address], [place], [place], [address], [place] tel:[phone] [facility] headache1 (chief complaint) anxiety1 (chief complaint) back pain1 (chief complaint) HTN (chief complaint) HeadacheEssential (primary) hypertensionChronic pain syndromeGeneralized Anxiety Disorder Sep-3 6 Andrey Banks, [address], [place], [place], [address] , [place]. tel:[phone] Referring Provider: Katelynn Ladd [address], [place], [place], [address]. tel:[phone] OFFICE/OUTPA TIENT VISIT, [facility], [address], [place], [place], [address], [place] tel:[phone] [facility] wieght gain (chief complaint) chronic pain (chief complaint) anxiety1 (chief complaint) HLP (chief complaint) Abnormal weight gainGeneralized Anxiety DisorderChronic pain syndromeHyperlipide destin Sep-0 - 6 Andrey Seals. [address], [place], [place], [address] , [place]. tel:[phone] Referring Provider: Katelynn Ladd [address], [place], [place], [address]. tel:[phone] OFFICE/OUTPA TIENT VISIT, [facility], [address], [place], [place], [address], [place] tel:[phone] [facility] back apin1 (chief complaint) insomnia1 (chief complaint) headache1 (chief complaint) Other insomniaGeneralized Anxiety DisorderOther spondylosis, lumbar regionHeadache 6 Andrey Seals. [address], [place], [place], [address] , [place]. [phone] Referring Provider: Katelynn Ladd [address], [place], [place], [address]. tel:[phone] OFFICE/OUTPA TIENT VISIT, [facility], [address], [place], [place], [address], [place] tel:[phone] [facility] LBP1 (chief complaint) anxiety1 (chief complaint) headache1 (chief complaint) HeadacheGeneralized Anxiety DisorderChronic pain syndrome 6 Andrey Seals. [address], [place], [place], [address] , [place]. [phone] Referring Provider: Katelynn Ladd [address], [place], [place], [address]. tel:[phone] OFFICE/OUTPA TIENT VISIT, [facility], [address], [place], [place], [address], [place] tel:[phone] [facility] anxiety1 (chief complaint) back pain1 (chief complaint) insomnia1 (chief complaint) Other spondylosis, lumbar regionGeneralized Anxiety DisorderOther insomnia 6 Andrey Seals. [address], [place], [place], [address] , [place]. tel:[phone] Referring Provider: [address], [place], [place], [address]. tel:[phone] OFFICE/OUTPA TIENT VISIT, [facility], [address], [place], [place], [address], [place] tel:[phone] [facility] headache1 (chief complaint) anxiety1 (chief complaint) back pain1 (chief complaint) HeadacheGeneralized Anxiety DisorderChronic pain syndromeEncounter for screening for osteoporosis 6 Andrey Seals. [address], [place], [place], [address] , [place]. tel:[phone] Referring Provider: Katelynn Ladd [address] [facility] [address], [place], [place], [address]. tel:[phone] OFFICE/OUTPA TIENT VISIT, [facility], [address], [place], [place], [address], [place] tel:[phone] [facility] headache1 (chief complaint) back pain1 (chief complaint) anxiety1 (chief complaint) UTI (chief complaint) Urinary tract infectionChronic pain syndromeGeneralized anxiety disorderHeadache 6 Andrey Seals. [address], [place], [place], [address] , [place]. tel:[phone] Referring Provider: Katelynn Ladd [address], [place], [place], [address]. tel:[phone] OFFICE/OUTPA TIENT VISIT, [facility], [address], [place], [address], [place] tel:[phone] [facility] chronic pain (chief complaint) anxiety1 (chief complaint) withdraw (chief complaint) Chronic pain syndromeGeneralized anxiety disorderAnxiolytic dependence w/ withdrawalUrinary tract infection 6 Andrey Seals. [address], [place], [place], [address] , [place]. tel:[phone] Referring Provider: Katelynn Ladd [address], [place], [place], [address]. tel:[phone] OFFICE/OUTPA TIENT VISIT, [facility], [address], [place], [place], [address], [place] tel:[phone] [facility] anxety1 (chief complaint) back pain1 (chief complaint) trazodone1 (chief complaint) rash1 (chief complaint) Other insomniaGeneralized Anxiety DisorderChronic pain syndromeRash 6 Andrey Seals. [address], [place], [address] , [place]. tel:[phone] Referring Provider: Arnel Balderas, [address], [place], [place], [address]. tel:[phone] OFFICE/OUTPA TIENT VISIT, [facility], [address], [place], [place], [address], [place] tel:[phone] [facility] anxiety1 (chief complaint) insomnia1 (chief complaint) back pain1 (chief complaint) Chronic pain syndromeGeneralized anxiety disorderOther insomnia 5 Andrey Seals. [address], [place], [address] , [place]. [phone] Referring Provider: Katelynn Ladd [address], [place], [place], [address]. tel:[phone] OFFICE/OUTPA TIENT VISIT, [facility], [address], [place], [place], [address], [place] tel:[phone] [facility] UTI1 (chief complaint) HLP (chief complaint) back pain1 (chief complaint) Aniety1 (chief complaint) Metabolic syndromeMixed hyperlipidemiaUrina ry tract infectionOther spondylosis, lumbar region 5 Andrey Seals. [address], [place], [place], [address] , [place]. [phone] Referring Provider: Katelynn Ladd [address], [place], [place], [address]. tel:[phone] PREV VISIT, NEW, AGE 40-64 [facility], [address], [place], [place], [address], [place] tel:[phone] [facility] PHysical (chief complaint) Encounter for general adult medical exam w abnormal findingsOther intervertebral disc displacement, lumbar regionGeneralized anxiety disorder 5 Andrey Seals. [address], [place], [place], [address] , [place]. tel:[phone] Referring Provider: Arnel Balderas [address], [place], [place], [address]. tel:[phone] Family History Family Member Type Diagnosis Age At Onset Father Problem (finding) Alive and well Father Problem (finding) Coronary artery disease Mother Problem (finding) back pain Payers Payer name Insurance type Covered republican ID Authoriza tion(s) No Information Social History Type Description Quantity Date Captured Comments Alcohol Use Details Unknown Caffeine Use Details Unknown Tobacco Use Status Smoking Status No Information Sex Female Chief Complaint And Reason For Visit No Information Plan Of Treatment Date Type Action Status Referral Ordered: KAYLEE GARCIA (related to Chest pain) ordered Referral Referred To: KAYLEE GARCIA [id number] [facility]
[address], [id number] Ordered: Referrals: KAYLEE GARCIA. Evaluate and treat [...] aggression, agitation state. [facility] Pt had [...] Instructions Date Instruction Additional Infor mation Prescribed Activity and Exercise Education Related to [...]
== END 2024-11-09 11:27 | disposition left against medical advice (07) ==
LOC: ANHED 11:20
PROVIDERS: PCP Nurse Practitioner Family
DX: I10 Essential (primary) hypertension (principal)
CPT/HCPCS: 99199

== ENCOUNTER 2025-01-01 12:12 | Emergency (ER) | payer OTHER, SELFPAY ==
--- NOTE | ~2025-01-01 | XR_ITS ---
EXAM/PROCEDURE: XR chest 2V - 01/01/2025 14:20 CDT HISTORY: 59 years old Female with cp TECHNIQUE: Two view(s) of the chest. COMPARISON: None available. FINDINGS: LUNGS/ PLEURA: No focal consolidation. No appreciable pneumothorax or large pleural effusion. HEART/ MEDIASTINUM: Heart appears normal in size. BONES: No acute osseous abnormality. OTHER: Visualized upper abdomen is unremarkable. IMPRESSION: No acute process. Reviewed, dictated and finalized at location A. IMPRESSION: No acute process.
--- OUTSIDE RECORDS SUMMARY | 2025-01-01 12:15 | XMS_ITS | Clinical Summary ---
Author Organization [facility] Address [address] [place] [address] Care Team Providers Care Ranger Aide Name Role Phone Monae Mccann NABEEL Primary Care Provider [phone] Allergies No known active allergies Medications diphenhydrAMIN E 25 MG capsule Take 1 capsule (25 mg total) by mouth every 6 (six) hours as needed for Itching or Sleep. Active Melatonin 3 MG CapIndications :Primary insomnia Take 12 mg by mouth nightly. 30 capsule 10/11/19 21 Active albuterol sulfate HFA 108 (90 Base) MCG/ACT inhalerIndicat ions:Chronic bronchitis, unspecified chronic bronchitis type ([facility]HCC [facility]) INHALE 2 PUFFS BY MOUTH EVERY 4 HOURS NEEDED FOR SHORTNESS OF BREATH OR WHEEZING 18 g 5 06/13/19 24 Active famotidine (PEPCID) 20 MG tabletIndicati ons:Gastroesop hageal reflux disease, unspecified whether esophagitis present,Nausea Take 1 tablet (20 mg total) by mouth 2 (two) times daily. 60 tablet 11 08/06/19 24 Active diclofenac EC (VOLTAREN) 75 MG tabletIndicati ons:Chronic upper back pain,Chronic midline low back pain without sciatica Take 1 tablet (75 mg total) by mouth 2 (two) times daily as needed. 60 tablet 5 08/06/19 24 Active Estriol Micronized (ESTRIOL, E3,) 1 MG/G vaginal creamIndicatio ns:Post-menopa usal,Vaginal atrophy Place vaginally daily. Apply 0.5 to 1 g vaginally every night for 14 nights, thereafter, apply 0.5 to 1 g vaginally at night 1 to 3 times a week as needed for symptoms. 1 Container 3 09/06/19 24 Active nystatin (MYCOSTATIN) creamIndicatio ns:Fungal rash of trunk Apply topically 2 (two) times daily. 30 g 2 11/20/19 24 Active nystatin (MYCOSTATIN) powderIndicati ons:Fungal rash of torso Apply topically 3 (three) times daily. 60 g 2 04/08/20 24 Active DULoxetine (CYMBALTA) 60 MG capsuleIndicat ions:Bipolar disorder, current episode mixed, moderate (CMS/HCC HHS/HCC),Chron ic midline low back pain without sciatica Take 1 capsule (60 mg total) by mouth daily. 90 capsule 1 05/28/20 24 Active metoprolol tartrate (LOPRESSOR) 100 MG tablet Take one tablet (100mg total) by mouth ONE HOUR PRIOR TO CORONARY CTA. 1 tablet 07/07/19 25 Active SUMAtriptan (IMITREX) 100 MG tabletIndicati ons:Other migraine without status migrainosus, not intractable TAKE 1 TABLET BY MOUTH AT ONSET OF MIGRAINE, MAY TAKE A SECOND DOSE IN 2 HOURS NEEDED 41 tablet 2 07/17/19 25 Active losartan (COZAAR) 50 MG tablet Take 2 tablets (100 mg total) by mouth daily. 90 tablet 3 08/28/19 25 Active rosuvastatin (CRESTOR) 10 MG tablet Take 1 tablet (10 mg total) by mouth nightly at bedtime. 90 tablet 3 08/29/19 25 Active rOPINIRole (REQUIP) 0.25 MG tabletIndicati ons:Restless leg syndrome Take 1 tablet (0.25 mg total) by mouth nightly as needed. APPOINTMENT REQUIRED, PLEASE CONTACT OFFICE 15 tablet 09/08/19 25 Active nitroglycerin (NITROSTAT) 0.4 MG SL tabletIndicati ons:Abnormal EKG TAKE 1 TABLET BY MOUTH EVERY 5 MINUTES NEEDED FOR CHEST PAIN FOR A MAX OF 3 DOSES. IF TAKING THIRD DOSE, CALL 911. 25 tablet 1 10/20/19 25 Active cariprazine (VRAYLAR) 1.5 MG capsuleIndicat ions:Bipolar disorder, current episode mixed, severe, without psychotic features (CMS/HCC HHS/HCC),Moder ate episode of recurrent major depressive disorder (CMS/HCC) Take 1 capsule (1.5 mg total) by mouth daily. 30 capsule 11 11/10/19 25 Active carvedilol (COREG) 12.5 MG tablet Take 1 tablet (12.5 mg total) by mouth 2 (two) times daily. 180 tablet 1 12/26/19 25 Active cloNIDine (CATAPRES) 0.1 MG tabletIndicati ons:Primary hypertension,A nxiety Take 1 tablet (0.1 mg total) by mouth 2 (two) times daily. 60 tablet 1 12/31/19 25 Active tiZANidine HCl 6 MG CapIndications :Chronic midline low back pain without sciatica,Muscl e spasm Take 1 tablet by mouth every 8 (eight) hours as needed (muscle spasms). 90 capsule 12/31/19 25 Active valACYclovir (VALTREX) 1 g tabletIndicati ons:Mouth sores Take 1 tablet (1,000 mg total) by mouth 3 (three) times daily. 21 tablet 09/25/19 23 2024 Discontinued nicotine (NICODERM CQ) 14 MG/24HRIndicat ions:Smoker PLACE 1 PATCH ONTO THE SKIN ONCE DAILY 28 patch 07/14/19 25 2024 Discontinued carvedilol (COREG) 6.25 MG tablet Take 1 tablet (6.25 mg total) by mouth 2 (two) times daily. 180 tablet 3 08/29/192024 Discontinued cyclobenzaprin e (FLEXERIL) 10 MG tabletIndicati ons:Chronic midline low back pain without sciatica Take 1 tablet (10 mg total) by mouth 3 (three) times daily as needed for Muscle Spasms. 60 tablet 2 09/01/19 25 2024 Discontinued(I neffective) cloNIDine (CATAPRES) 0.1 MG tabletIndicati ons:Primary hypertension,A nxiety Take 1 tablet (0.1 mg total) by mouth 2 (two) times daily. 60 tablet 1 10/15/19 25 2024 Discontinued(R eorder) fluconazole (DIFLUCAN) 100 MG tabletIndicati ons:Mouth sores Take 1 tablet (100 mg total) by mouth daily for 7 days. 7 tablet 11/27/19 25 2024 nystatin (MYCOSTATIN) [id number] UNIT/ML suspensionIndi cations:Mouth sores Take 5 mLs (500,000 Units total) by mouth 4 (four) times daily for 10 days. 200 mL 12/01/19 25 2024 carvedilol (COREG) 6.25 MG tablet Take 2 tablets (12.5 mg total) by mouth 2 (two) times daily. 180 tablet 1 12/26/19 25 2024 Discontinued tiZANidine (ZANAFLEX) 4 MG tabletIndicati ons:Muscle spasm Take 1 tablet (4 mg total) by mouth every 8 (eight) hours as needed (muscle spasms). 30 tablet 12/26/19 25 2024 Discontinued(D ose adjustment) Active Problems Problem Noted Date Diagnosed Date Muscle spasm 12/30/2024 Precordial pain 06/26/2024 LINDY-inhibitor cough 06/26/2024 Abnormal EKG 06/24/2024 Chest tightness 04/30/2024 Primary hypertension 04/30/2024 Mass of right chest wall 04/08/2024 Restless leg syndrome 04/08/2024 Fungal rash of torso 04/08/2024 Polyarthralgia 08/14/2023 Family history of early CAD 08/14/2023 Gastroesophageal reflux dise ase, unspecified whether esophagitis present 08/14/2023 Chronic diarrhea 08/14/2023 Chronic upper back pain 02/22/2021 Chronic bronchitis, unspecif ied chronic bronchitis type ([facility]) 10/12/2020 Non compliance w medication regimen 10/12/2020 Non compliance with medical treatment 10/12/2020 Primary insomnia 10/10/2020 Atopic dermatitis, unspecified type 08/10/2020 Overweight with body mass in dex (BMI) of 29 to 29.9 in adult 12/22/2019 Viral warts, unspecified type 12/22/2019 Post-menopausal 12/22/2019 Neuropathy 12/22/2019 Vitamin D deficiency 12/22/2019 Other migraine without status migrainosus, not i ntractable 05/24/2019 Chronic midline low back pain without sciatica 1 07/25/2018 Adult BMI 28.0-28.9 kg/sq m 05/24/2019 H/O total hysterectomy 01/26/2019 Irritable bowel syndrome with diarrhea 9 Bipolar disorder ([facility]) 11/15/2017 Migraine headache 03/06/2017 Anxiety 02/20/2017 Moderate episode of recurrent major depressive d isorder 02/20/2017 Opioid dependence ([facility]) 02/20/2017 Hypercholesterolemia 02/19/2017 Hypothyroidism 02/19/2017 Resolved Problems Problem Noted Date Diagnosed Date Resolved Date Chest pain, unspecified type 08/14/2023 04/08/2024 Chronic cough 02/22/2021 04/08/2024 Breast cancer screening by mammogram 12/22/2019 02/19/2020 Fungal rash of trunk 12/22/2019 021 Opioid withdrawal ([facility]) 10/21/2018 04/08/2024 Overview (08/10/2020): Last Assessment & Plan: . Opioid dependence with withd pilar ([facility]) 07/22/2018 04/08/2024 Overview (11/18/2018): Last Assessment & Plan: . Tongue sore 11/18/2017 07/08/2018 UTI symptoms 11/18/2017 07/08/2018 Low back pain 11/15/2017 07/08/2018 Chronic left shoulder pain 02/19/2017 1 Nausea 02/19/2017 07/08/2018 Yeast dermatitis 02/19/2017 07/08/2018 Encounters Date Type Department Care Team Description 12/30/2024 9:20 AM CDT Telemedicine [facility] [address] [phone] Monae Mccann FNP Back Pain (patient presenting virtually c/o back pain - she was RX tizanidine and requested increase of dose- but she did report that she was taking the 4mg every 2 hours and it worked so well and loved it ) 12/30/2024 Travel 12/29/2024 Telephone [facility] [address] [phone] Monae Mccann FNP Information; Advice 12/25/2024 11:45 AM CDT Office Visit [facility] [phone] Everette Coffey MD Hypertension (Follow up) 12/25/[address] [phone] Monae Mccann FNP Medication Request 12/25/2024 Travel 11/27/[address] [phone] Monae Mccann FNP Medication Request 11/26/[address] [phone] Monae Mccann FNP Medication Request 11/19/2024 6:33 PM CDT - 11/20/2024 1:30 AM CDT Emergency [facility] [place] [address] Willy Rodríguez, DO Hypertension Discharge Disposition: Home or Self Care (Routine Discharge) 11/19/2024 Travel 11/09/[address] [phone] Monae Mccann FNP Problem (Elevated BP) 11/06/2024 Scan [facility] INFO SRVCS Scanned, [facility] 10/23/[address] [phone] Monae Mccann FNP Information 10/19/[address] [phone] Monae Mccann FNP Blood Pressure (Pt calling in to report BP readings since being prescribed clonidine.) 10/14/2024 10:00 AM CDT Telemedicine [address] [place] [address] Monae Mccann, HEALTH SERVICES INFORMATION SPECIALIST Hypertension (Patient presenting virtually for increased BP- this Am was 199/99 - ) 10/14/2024 Travel from Last 3 Months Immunizations Immunization Administration Dates Next Due Fluzone 6 Months+ Quad (0.5 mL Prefilled Syringe ) 08/06/2023,05/18/2019 Influenza Adult (Generic) 06/09/2021 MMR (MMRII) 10/30/2018 Pneumococcal (Prevnar 20) 08/06/2023 Shingrix 06/09/2021,03/01/2021 Tdap (Generic) 06/26/2018 Family History Medical History Relation Comments Heart Disease Father Hypertension Father Hypertension Maternal Grandfather Heart Disease Maternal Grandmother Hypertension Maternal Grandmother Heart Disease Mother Hyperlipidemia Mother Hypertension Mother Heart Disease Paternal Grandmother Hypertension Paternal Grandmother Relation Status Comments Father Alive Maternal Grandfather Maternal Grandmother Mother Alive Paternal Grandmother Social History Tobacco Use Types Packs/Day Years Used Date Smoking Tobacco: Every Day Cigarettes 1 30 Passive Smoke Exposure: Current Smokeless Tobacco: Never Tobacco Cessation:Ready to Q uit: Not Asked; Counseling Given: Not Answered Comments:The provider can provide you with information to quit smoking Alcohol Use Standard Drinks/Week Comments No 0 (1 standard drink = 0.6 oz pur e alcohol) AUDIT-C Answer Date Recorded Frequency of Alcohol Consumption Never 07/31/2018 Average Number of Drinks Not on file 019 Frequency of Binge Drinking Not on file 07/12 PHQ-2 Answer Date Recorded PHQ-2 Score - If the patient scores above 3, please move on to questions 3-9 3 09/21/2020 Comments No Sex and Gender Information Value Date Recorded Sex Assigned at Female 06/29/2024 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 Legal Sex Female 8:04 PM CDT Gender Identity Not on file Sexual Orientation Not on file Last Filed Vital Signs Vital Sign Reading Time Taken Comments Blood Pressure 150/90 12/25/2024 10:58 AM CDT Pulse 75 12/25/2024 10:58 AM CDT Temperature 36.7 C (98 F) 11/19/2024 6:19 PM CDT Respiratory Rate 17 11/20/2024 1:00 AM CDT Oxygen Saturation 95% 12/25/2024 10:58 AM CDT Inhaled Oxygen Concentration - - Weight 75.8 kg (167 lb) 12/30/2024 8:57 AM CDT p t reported Height 160 cm (5' 3) 12/30/2024 8:57 AM CDT pt reported Body Mass Index 29.58 12/30/2024 8:57 AM CDT Plan of Treatment Upcoming Encounters Date Type Department Care Team (Late st Contact Info) Description 06/25/2025 10:30 AM PAYROLL PROCESSOR Office Visit [facility] [phone] Everette Coffey MD [facility] [address] [place] [phone] Health Maintenance Due Date Last Done Comments Colorectal Cancer Screening Colonoscopy (10 Years) 1965 Annual Physical 02/25/1967 Mammogram Screening 2004 Lung Cancer Screening 02/25/2014 COVID-19 Vaccine (4 - 2023-2 5 season) 2024 06/04/2021, 10/11/2020, 09/20/2020 RSV Immunization or 60+ Years (1 - Risk 60-74 years 1-dose series) 2024 PHQ-2 (Physician [place]) 06/10/2024 DTaP, Tdap and Td Vaccines ( 2 - Td or Tdap) 06/26/2028 06/26/2018 Hepatitis C Completed 01/26/2019 Zoster Vaccines Completed 06/09/2021, 03/01/2021 Pneumococcal Vaccine: 50+ Years Completed 08/06/2023 Meningococcal B Vaccine Aged Out No l onger eligible based on patient's age to complete this topic Meningococcal Vaccine Aged Out No lino eliu eligible based on patient's age to complete this topic RSV Immunizations Under 20 Months Aged Out No longer eligible b ased on patient's age to complete this topic Procedures Procedure Name Priority Date/Time Associated Diagnosis Comments DRUG SCREEN RAPID STAT 11/19/2024 11: 58 PM CDT URINALYSIS, AUTO, COMPLETE STAT 11/19/2024 11:57 PM CDT ECG 12-LEAD STAT 11/19/2024 10:39 PM CDT TROPONIN, QUANT STAT 11/19/2024 10:[address] HEAD WO CON STAT 11/19/2024 8:45 PM CDT XR CHEST PA+LAT STAT 11/19/2024 6:46 PM CDT MAGNESIUM STAT 11/19/2024 6:42 PM CDT TROPONIN, QUANT STAT 11/19/2024 6:42 PM CDT COMPREHENSIVE METABOLIC PANEL STAT 11/19/2024 6:42 PM CDT CBC W/DIFF AUTOMATED STAT 11/19/2024 6:42 PM CDT ECG 12-LEAD Routine 11/19/2024 6:39 PM CDT HEPATITIS C ANTIBODY Routine 01/26/2019 1:19 PM CDT Need for hepatitis C screening test from Last 3 Months or Most Recently Relevant to Health Maintenance Results * (ABNORMAL) DRUG SCREEN RAPID (11/19/2024 11:58 PM CDT) AMPHETAMINE (U) NEGATIVE NEGATIVE 12:17 AM CDT [facility] BARBITURATES SCREEN (U) NEGATIVE NEGATIVE 11/20/2024 12:17 AM CDT [facility] BENZODIAZEPINES SCREEN (U) NEGATIVE NEGATIVE 11/20/2024 12:17 AM CDT [facility] CANNABINOIDS SCREEN (U) POSITIVE(A) NEGATIVE 11/20/2024 12:17 AM CDT [facility] COCAINE METABOLITES (U) NEGATIVE NEGATIVE 11/20/2024 12:17 AM CDT [facility] METHADONE (U) NEGATIVE NEGATIVE 11/20/2024 12:17 AM CDT [facility] OPIATE SCREEN (U) NEGATIVE NEGATIVE 025 12:17 AM CDT [facility] PHENCYCLIDINE PCP (U) NEGATIVE NEGATIVE 11/20/2024 12:17 AM CDT [facility] Comment: NOTE: RESULTS OF THIS DRUG SCREEN SHOULD BE USED FOR MEDICAL PURPOSES ONLY AND NOT FOR LEGAL OR EMPLOYMENT PURPOSES. POSITIVE RESULTS ARE NOT CONFIRMED. MEDICATIONS CONTAINING EPHEDRINE MAY CAUSE FALSE POSITIVE AMPHETAMINE CALL [phone], LAB, TO REQUEST CONFIRMATION TESTING. IF CREATININE IS <40 mg/dL. RECOLLECTION IS SUGGESTED. AMPHETAMINE- 500 NG/ML BARBITURATE- 200 NG/ML BENZODIAZEPINES- 200 NG/ML THC- 50 NG/ML COCAINE- 150 NG/ML METHADONE- 300 NG/ML OPIATE- 300 MG/ML PCP- 25 NG/ML CREATININE (U) 39.1 28 - 217 MG/DL 11/20/2024 12:17 AM CDT [facility] URINE SPECIMEN / Unknown 11/19/2024 11:58 PM CDT us Willy Rodríguez DO URINE ORDERABLES Final Result [facility] [address] [place] [address], [place] [phone] * Urinalysis, Auto, Complete (11/19/2024 11:57 PM CDT) SPECIMEN TYPE URINE, UNSPECIFIED 11/20/2024 12:37 AM CDT [facility] COLOR (U) COLORLESS 11/20/2024 1:23 AM CDT [facility] TRANSPARENCY CLEAR 11/20/2024 1:23 AM CDT [facility] SPECIFIC GRAVITY (U) 1.006 1.001 - 1.030 11/20/2024 1:23 AM CDT [facility] U PH 6.0 5.0 - 9.0 11/20/2024 1:23 AM CDT [facility] LEUKOCYTES (U) NEGATIVE NEGATIVE 11/20/2024 1:23 AM CDT [facility] NITRITES NEGATIVE NEGATIVE 11/20/2024 1:23 AM CDT [facility] PROTEIN RANDOM (U) NEGATIVE <30 MG/DL 11/20/2024 1:23 AM CDT [facility] GLUCOSE (U) NORMAL NORMAL MG/DL 11/20/2024 1:23 AM T [facility] KETONES MG/DL (U) NEGATIVE NEGATIVE MG/DL 11/20/2024 1:23 AM T [facility] UROBILINOGEN NORMAL NORMAL MG/DL 11/20/2024 1:23 AM CDT [facility] BILIRUBIN (U) NEGATIVE NEGATIVE MG/DL 11/20/2024 1:23 AM CDT [facility] BLOOD (U) NEGATIVE NEGATIVE 11/20/2024 1:23 AM T [facility] MUCUS RARE /LPF 11/20/2024 1:23 AM CDT [facility] RBC/HPF <1 <6 /HPF 11/20/2024 1:23 AM CDT [facility] SQUAMOUS EPITHELIALS RARE /HPF 11/20/2024 1:23 AM T [facility] URINE SPECIMEN / Unknown 11/19/2024 11:57 PM CDT us Willy Rodríguez DO URINE ORDERABLES Final Result [facility] [address] [place] [address], * ECG 12 lead (11/19/2024 10:39 PM CDT) Only the most recent of2 resultswithin the time period is included. 11/19/2024 10:3 9 PM CDT Narrative [facility] ([facility] - 11/20/2024 10:[address] 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 TROPONIN I HIGH SENSITIVITY 10 <54 ng/L 11/19/2024 11:07 PM CDT [facility] Comment: HIGH DOSES OF BIOTIN, TROPONIN-SPECIFIC AUTOANTIBODIES, AND ANTIBODY THERAPY CONTAINING HAMA MAY INTERFERE WITH THIS TEST RESULT. CORRELATION TO CLINICAL HISTORY AND PRESENTATION RECOMMENDED. 11/19/2024 10:3 7 PM CDT Willy Rodríguez DO LABORATORY Final Result [facility] [address] [place] [address], * CT HEAD WO CON (11/19/2024 8:45 PM CDT) Anatomical Region Laterality Modality Head Computed Tomogra phy 11/19/2024 9:27 PM CDT Impressions 11/19/2024 9:34 PM CDT IMPRESSION: 1. No acute intracranial abnormality. 2. Moderate extra-axial CSF prominence over the anterior superior frontal convexities is likely related to atrophy or less likely shallow subdural hygromas or effusions. 3. Partially or nearly empty sella, which can be seen as a developmental variant, but please correlate clinically to exclude hypopituitarism and/or intracranial hypertension. Referred By: Interpreted By: Gracie Verdin MD, 11/19/2024 9:27 PM Narrative 11/19/2024 9:34 PM CDT [facility] [place] [address] EXAMINATION: CT Head without Contrast, Axial Imaging with 2-D Coronal and Sagittal Reconstruction. This CT exam was performed using one or more of the following dose reduction techniques: automated exposure control, adjustment of the mA and/or kV according to patient size, the use of iterative reconstruction technique, use of ALARA (As Low As Reasonably Achievable) and/or use of Image Gently techniques. INDICATION: Dizziness, high blood pressure for past 3 weeks, lightheadedness. COMPARISON: None. FINDINGS: No mass, midline shift, intracranial hemorrhage, areas of acute macrovascular ischemia, or acute osseous abnormality. There is a partially empty sella. Mild extra-axial CSF prominence over the anterior superior frontal convexities is likely on the basis of atrophy, with subdural hygromas or effusions less likely. Minimal asymmetry of the lateral ventricles with right minimally larger than left is likely developmental variation. Ventricles and sulci are otherwise unremarkable for age. Normal hillman-white differentiation is maintained. Visualized orbits are unremarkable. No significant disease in the partially visualized paranasal sinuses or mastoid air cells. Procedure Note Gracie Verdin MD - 11/19/2024 [place] [address] EXAMINATION: CT Head without Contrast, Axial Imaging with 2-D Coronal andSagittal Reconstruction. This CT exam was performed using one or more of the following dosereduction techniques: automated exposure control, adjustment of the mAand/or kV according to patient size, the use of iterative reconstructiontechnique, use of ALARA (As Low As Reasonably Achievable) and/or use ofImage Gently techniques. INDICATION: Dizziness, high blood pressure for past 3 weeks,lightheadedness. COMPARISON: None. FINDINGS: No mass, midline shift, intracranial hemorrhage, areas of acutemacrovascular ischemia, or acute osseous abnormality. There is apartially empty sella. Mild extra-axial CSF prominence over the anteriorsuperior frontal convexities is likely on the basis of atrophy, withsubdural hygromas or effusions less likely. Minimal asymmetry of thelateral ventricles with right minimally larger than left is likelydevelopmental variation. Ventricles and sulci are otherwise unremarkablefor age. Normal hillman-white differentiation is maintained. Visualizedorbits are unremarkable. No significant disease in the partiallyvisualized paranasal sinuses or mastoid air cells. IMPRESSION: 1. No acute intracranial abnormality. 2. Moderate extra-axial CSF prominence over the anterior superior frontalconvexities is likely related to atrophy or less likely shallow subduralhygromas or effusions. 3. Partially or nearly empty sella, which can be seen as a developmentalvariant, but please correlate clinically to exclude hypopituitarism and/orintracranial hypertension. Referred By: Interpreted By: Gracie Verdin MD, 11/19/2024 9:[address] Final Resul t * XR CHEST PA+LAT (11/19/2024 6:46 PM CDT) Anatomical Region Laterality Modality Chest Radiographic Lety ging 11/19/2024 7:11 PM CDT Impressions 11/19/2024 7:17 PM CDT Impression: No acute findings. Referred By: Interpreted By: Juan Quintana MD, 11/19/2024 7:11 PM Narrative 11/19/2024 7:[address] PM [address] [address] Examination: Chest 2 View History: Weakness DATE/TIME: 11/19/2024 6:46 PM Comparison: December 06, 2021 Technique: PA and lateral views were obtained. Findings: Heart size, mediastinal contours and pulmonary vasculature are within normal limits. No pulmonary consolidation, pleural effusion or pneumothorax. No acute osseous abnormality. Minimal scoliosis. Minimal linear left basilar atelectasis. Procedure Note Juan Quintana MD - 11/19/2024 [facility] [address] Examination: Chest 2 View History: Weakness DATE/TIME: 11/19/2024 6:46 PM Comparison: December 06, 2021 Technique: PA and lateral views were obtained. Findings: Heart size, mediastinal contours and pulmonary vasculature arewithin normal limits. No pulmonary consolidation, pleural effusion orpneumothorax. No acute osseous abnormality. Minimal scoliosis. Minimallinear left basilar atelectasis. Impression: No acute findings. Referred By: Interpreted By: Juan Quintana MD, 11/19/2024 7:11 PM [facility] Final Resul t * (ABNORMAL) COMPREHENSIVE METABOLIC PANEL (11/19/2024 6:42 PM CDT) GLUCOSE 99 70 - 99 MG/DL 11/19/2024 7:10 PM CDT [facility] BUN 12 7 - 18 MG/DL 11/19/2024 7:10 PM CDT [facility] CREATININE S/P/B 0.82 0.55 - 1.02 MG/DL 11/19/2024 7:10 PM CDT [facility] SODIUM S/P/B 135(L) 136 - 145 MMOL/L 11/19/2024 7:10 PM CDT [facility] POTASSIUM S/P/B 4.1 3.5 - 5.1 MMOL/L 11/19/2024 7:10 PM CDT [facility] CHLORIDE S/P/B 105 97 - 115 MMOL/L 11/19/2024 7:10 PM CDT [facility] CO2 24.6 21 - 32 MMOL/L 11/19/2024 7:10 PM CDT [facility] CALCIUM S/P/B 9.2 8.5 - 10.1 MG/DL 11/19/2024 7:10 PM CDT [facility] BILIRUBIN TOTAL S/P/B 0.9 0.2 - 1.2 MG/DL 11/19/2024 7:10 PM [facility] Comment: THIS ASSAY IS NOT RECOMMENDED FOR PATIENTS UNDERGOING TREATMENT WITH ELTROMBOPAG DUE TO THE POTENTIAL FOR FALSELY ELEVATED RESULTS. TOTAL PROTEIN S/P/B 7.5 6.4 - 8.2 G/DL 11/19/2024 7:10 PM T [facility] ALBUMIN S/P/B 3.7 3.4 - 5.0 G/DL 11/19/2024 7:10 PM T [facility] AST 22 15 - 37 U/L 11/19/2024 7:10 PM [facility] ALT 32 14 - 55 U/L 11/19/2024 7:10 PM T [facility] ALKALINE PHOSPHATASE S/P/B 123 50 - 136 U/L 11/19/2024 7:10 PM [facility] ANION GAP 5.4 2 - 10 MMOL/L 11/19/2024 7:10 PM [facility] BUN CREATININE RATIO 14.6 6 - 26 11/19/2024 7:10 PM [facility] A/G RATIO 1.0 1.0 - 2.0 RATIO 11/19/2024 7:10 PM [facility] GFR ESTIMATE 82(L) >90 ML/MIN/1.7 3 M2 11/19/2024 7:10 PM [facility] Comment: NOTE: eGFR is not calculated for patients <18 years of age or gender unknown. This is an estimated GFR calculation using the new CKD EPI creatinine equation without race and so does not require a correction factor for race. This estimated GFR should not be used for calculating drug doses. 11/19/2024 6:42 PM CDT us Valdo ANNE LABORATORY Final Resul t [facility] [address] [place] [address], [place] [phone] * (ABNORMAL) CBC W/DIFF AUTOMATED (11/19/2024 6:42 PM CDT) WBC 14.23(H) 4.5 - 11.0 x10'3/uL 11/19/2024 6:51 PM CDT [facility] RBC 5.11 4.20 - 5.40 x10'6/uL 11/19/2024 6:51 PM CDT [facility] HGB 16.2(H) 12.0 - 16.0 G/DL 11/19/2024 6:51 PM CDT [facility] HCT 48.6(H) 38.0 - 48.0 % 11/19/2024 6:51 PM CDT [facility] MCV 95.1 81.0 - 99.0 FL 11/19/2024 6:51 PM CDT [facility] MCH 31.7(H) 27.0 - 31.0 PG 11/19/2024 6:51 PM CDT [facility] MCHC 33.3 32.0 - 36.0 G/DL 11/19/2024 6:51 PM CDT [facility] RDW 13.0 11.5 - 14.5 % 11/19/2024 6:51 PM CDT [facility] PLT 380 130 - 400 x10'3/uL 11/19/2024 6:51 PM CDT [facility] MPV 9.5 9.3 - 12.2 FL 11/19/2024 6:51 PM CDT [facility] DIFFERENTIAL TYPE MANUAL DIFFERENTIAL 11/19/2024 7:15 PM CDT [facility] SEG NEUTROPHILS 59 % 7:15 PM CDT [facility] LYMPHOCYTES 22 % 11/19/2024 7:15 PM CDT [facility] ATYP. LYMPHS 6 % 11/19/2024 7:15 PM CDT [facility] MONOCYTES 10 % 11/19/2024 7:15 PM CDT [facility] EOSINOPHILS 1 % 11/19/2024 7:15 PM CDT [facility] BASOPHILS 2 % 11/19/2024 7:15 PM CDT [facility] ABS. NEUTROPHILS 8.40(H) 1.80 - 7.70 x10'3/uL 11/19/2024 7:15 PM CDT [facility] ABS. LYMPHOCYTES 3.98 1.00 - 4.80 x10'3/uL 11/19/2024 7:15 PM CDT [facility] ABS. MONOCYTES 1.42(H) 0.24 - 0.86 x10'3/uL 11/19/2024 7:15 PM CDT [facility] ABS. EOSINOPHILS 0.14 0.04 - 0.36 x10'3/uL 11/19/2024 7:15 PM CDT [facility] ABS. BASOPHILS 0.28(H) 0.01 - 0.08 x10'3/uL 11/19/2024 7:15 PM CDT [facility] RBC MORPHOLOGY RBC MORPHOLOGY APPEARS NORMAL. SLIDE REVIEWED. 11/19/2024 7:15 PM CDT [facility] PLT EST. ADEQUATE 11/19/2024 7:15 PM CDT [facility] 11/19/2024 6:42 PM CDT Valdo ANNE [facility] Final Resul t [facility] [address] [place] [address], * MAGNESIUM (11/19/2024 6:42 PM CDT) MAGNESIUM 2.3 1.8 - 2.4 MG/DL 11/19/2024 7:10 PM CDT [facility] 11/19/2024 6:42 PM CDT Valdo ANNE [facility] Final Resul t Performing Organization Address [facility] Co de Phone Number [facility] [address] [place] [id number], * HEPATITIS C ANTIBODY (01/26/2019 1:19 PM CDT) HEPATITIS C AB NON-REACT ROGELIO NON-REACT ROGELIO [facility] SIGNAL TO CUTOFF 0.03 <1.00 [facility] Comment: HCV antibody was non-reactive. There is no laboratory evidence of HCV infection. In most cases, no further action is required. However, if recent HCV exposure is suspected, a test for HCV RNA (test code 98204) is suggested. For additional information please refer to http://education.WinAd/faq/BYG07x3 (This link is being provided for informational/ educational purposes only.) 01/26/2019 1:19 PM CDT 01/27/2019 3:46 AM CDT Narrative Resulting Agency Comment Performing Organization Information: Site ID: [place] Name: [facility] Address: [address] [phone] Director: Jay Alcaraz D.O., MPH Chidi Mott MD LABORATORY Final Result [facility] from Last 3 Months or Most Recently Relevant to Health Maintenance Insurance [employer] Care Teams Ranger Aide Relationship Specialty Start Date End Date Monae Mccann FNP [address] [place] [phone] PCP - General Nurse Practitioner Family 05/18/19
--- OUTSIDE RECORDS SUMMARY | 2025-01-01 12:15 | XMS_ITS | Patient Health Record ---
Author Organization [facility] [employer] [place] [facility] Address [address] [place] [address] Care Team Providers Care Cyber Engineer Name Role Phone Chavez Dudley Unavailable [phone] Reason For Referral No Information Medications Medication SIG (Take, Route, Fr equency, Duration) Notes Start Date End Date Status Xanax 1 MG Oral Active ALPRAZolam 1 MG Oral Acti ve traZODone HCl 300 MG Oral Active Saphris 5 MG Sublingual Active Plan Of Treatment No Information Insurance Providers Payer Name Payer Address Payer Phone Subscriber Number Group Number Insured Name Patient Relationship to Insured Coverage Start Date Coverage End Date [facility] [address] [place] [phone] [id number] PHUONG JANG Self - patient is the insured
--- OUTSIDE RECORDS SUMMARY | 2025-01-01 12:15 | XMS_ITS | Clinical Summary ---
Author Organization [facility] Address [address] [place] [address] Phone Care Team Providers Care Medical Accounting Clerk Name Role Phone Chidi Mott MD Primary Care Provider [phone] Allergies No known active allergies Medications atorvastatin [...] Health Maintenance Due Date Last Done Comments Cologuard 02/25/2009 Colonoscopy 02/25/2009 Colorectal Cancer Screening 02/25/2009 Immunochemical Fecal Occult Blood 02/25/2009 Pneumococcal Immunization (5 0+ years) (1 of 1 - PCV) 02/25/2014 Zoster Immunization (1 of 2) 02/25/2014 SARS-COV-2 Immunization (1 - 2023- season) 2024 Influenza Immunization (#1) 2025 Respiratory Syncytial Virus (RSV) Immunization (Adult) (1 - 1-dose 75+ series) 02/25/2039 DTaP/Tdap/Td Immunization Discontinued 06/26/2018 TdaP Immunization Completed 06/26/2018 Hepatitis C Virus (HCV) Screening Completed 019 Hepatitis B Immunization Aged Out No longer eligible based on patient's age to complete this topic Human Papillomavirus (HPV) Immunization Aged Out No longer eligible b ased on patient's age to complete this topic Meningococcal Immunization (ACWY) Aged Out No longer eligible based on patient's age to complete this topic Rotavirus Immunization Aged Out No lo nger eligible based on patient's age to complete this topic Insurance [facility] Care Teams Medical Accounting Clerk Relationship Specialty Start Date End Date Chidi Mott MD [address] [facility] [address] [place] [address] PCP - General Family Medicine 02/16/19
[2025-01-01 12:39] VITALS: BP 221/119; PULSE 66; RESP 18; TEMP 36.7; O2SAT 97
--- NOTE | 2025-01-01 12:44 | ECG_ITS ---
Test Date: 2025-01-01 12:49:04 Measurements Intervals [place] Rate: 68 P: 40 GA: 151 QRS: 17 QRSD: 94 T: 78 QT: 383 QTc: 408 Interpretive Statements SINUS RHYTHM NONSPECIFIC T-WAVE ABNORMALITY Compared to ECG 05/01/2024 17:35:09 T-wave abnormality now present Left ventricular hypertrophy no longer present ST (T wave) deviation no longer present Myocardial infarct finding no longer present Electronically Signed On 01-02-2025 18:39:05 CDT by Rylan Kirkland M.D.
[2025-01-01 13:05] LABS: Hematocrit 46.1 % (37.0-47.0); Hemoglobin 15.4 g/dL (12.0-15.0); Immature Granulocyte Percent A 0.3 % (0-0.5); Lymphocytes Absolute Auto 3.08 K/mm3 (0.9-3.2); Mean Corpuscular HGB Conc 33.4 g/dl (32-36); Mean Corpuscular Hemoglobin 32.0 pg (26-34); Mean Corpuscular Volume 95.8 fl (80-100); Nucleated Red Blood Cells Absolute Auto 0.000 K/mm3 (0.0-0.012); Nucleated Red Blood Cells Perc 0.0 % (0.0-0.2); Platelet Count Result 363 k/mm3 (150-375); Red Blood Count 4.81 M/mm3 (4.2-5.4); White Blood Count 11.0 K/mm3 (4.5-10.0)
--- OUTSIDE RECORDS SUMMARY | 2025-01-01 13:19 | XMS_ITS | Clinical Summary ---
Author Organization [facility] Address [address] [place] [address] Care Team Providers Care Combination Building Inspector Name Role Phone Monae Mccann NABEEL Primary Care Provider [phone] Allergies No known active allergies Medications diphenhydrAMIN E 25 MG capsule Take 1 capsule (25 mg total) by mouth every 6 (six) hours as needed for Itching or Sleep. Active Melatonin 3 MG CapIndications :Primary insomnia Take 12 mg by mouth nightly. 30 capsule 10/11/19 21 Active albuterol sulfate HFA 108 (90 Base) MCG/ACT inhalerIndicat ions:Chronic bronchitis, unspecified chronic bronchitis type ([facility]) INHALE 2 PUFFS BY MOUTH EVERY 4 [...] 7 tablet 11/27/19 25 2024 nystatin (MYCOSTATIN) [id number] UNIT/ML suspensionIndi cations:Mouth sores Take 5 mLs [...] Chronic bronchitis, unspecif ied chronic bronchitis type ([facility]) 10/12/2020 Non compliance w medication regimen 10/12/2020 [...] bowel syndrome with diarrhea 9 Bipolar disorder ([facility]) 11/15/2017 Migraine headache 03/06/2017 Anxiety 02/20/2017 Moderate episode of recurrent major depressive d isorder 02/20/2017 Opioid dependence ([facility]) 02/20/2017 Hypercholesterolemia 02/19/2017 Hypothyroidism 02/19/2017 Resolved Problems Problem Noted Date Diagnosed Date Resolved Date Chest pain, unspecified type 08/14/2023 04/08/2024 Chronic cough 02/22/2021 04/08/2024 Breast cancer screening by mammogram 12/22/2019 02/19/2020 Fungal rash of trunk 12/22/2019 021 Opioid withdrawal ([facility]) 10/21/2018 04/08/2024 Overview (08/10/2020): Last Assessment & Plan: . Opioid dependence with withd pilar ([facility]) 07/22/2018 04/08/2024 Overview (11/18/2018): Last Assessment & Plan: . Tongue sore 11/18/2017 07/08/2018 UTI symptoms 11/18/2017 07/08/2018 Low back pain 11/15/2017 07/08/2018 Chronic left shoulder pain 02/19/2017 1 Nausea 02/19/2017 07/08/2018 Yeast dermatitis 02/19/2017 07/08/2018 Encounters Date Type Department Care Team Description 12/30/2024 9:20 AM CDT Telemedicine [facility] [address] [phone] Monae Mccann FNP Back Pain (patient presenting virtually c/o back pain - she was RX tizanidine and requested increase of dose- but she did report that she was taking the 4mg every 2 hours and it worked so well and loved it ) 12/30/2024 Travel 12/29/2024 Telephone [facility] [address] [phone] Monae Mccann FNP Information; Advice 12/25/2024 11:45 AM CDT Office Visit [facility] [phone] Everette Coffey MD Hypertension (Follow up) 12/25/[address] [phone] Monae Mccann FNP Medication Request 12/25/2024 Travel 11/27/[address] [phone] Monae Mccann FNP Medication Request 11/26/[address] [phone] Monae Mccann FNP Medication Request 11/19/2024 6:33 PM CDT - 11/20/2024 1:30 AM CDT Emergency [facility] [place] [address] Willy Rodríguez, DO Hypertension Discharge Disposition: Home or Self Care (Routine Discharge) 11/19/2024 Travel 11/09/[address] [phone] Monae Mccann FNP Problem (Elevated BP) 11/06/2024 Scan [employer] INFO SRVCS Scanned, [facility] 10/23/[address] [phone] Monae Mccann FNP Information 10/19/[address] [phone] Monae Mccann FNP Blood Pressure (Pt calling in to report BP readings since being prescribed clonidine.) 10/14/2024 10:00 AM CDT Telemedicine [address] [place] [address] Monae Mccann, SETTER OFF Hypertension (Patient presenting virtually for increased BP- [...] Sex Assigned at Female 06/29/2024 9:29 AM EMAIL CAMPAIGN MANAGER Legal Sex Female 8:04 PM CDT Gender [...] st Contact Info) Description 06/25/2025 10:30 AM EMAIL CAMPAIGN MANAGER Office Visit [facility] [phone] Everette Coffey MD [address] [facility] [address] [place] [phone] Health Maintenance Due Date Last Done Comments Colorectal Cancer Screening Colonoscopy (10 Years) 1965 Annual Physical 02/25/1967 Mammogram Screening 2004 Lung Cancer Screening 02/25/2014 COVID-19 Vaccine (4 - 2023-2 5 season) 2024 06/04/2021, 10/11/2020, 09/20/2020 RSV Immunization or 60+ Years (1 - Risk 60-74 years 1-dose series) 2024 PHQ-2 (Physician [place]) 06/10/2024 DTaP, Tdap and Td Vaccines ( [...] AMPHETAMINE (U) NEGATIVE NEGATIVE 12:[address] [facility] BARBITURATES SCREEN (U) NEGATIVE NEGATIVE 11/20/2024 12:[address] [facility] BENZODIAZEPINES SCREEN (U) NEGATIVE NEGATIVE 11/20/2024 12:[address] [facility] CANNABINOIDS SCREEN (U) POSITIVE(A) NEGATIVE 11/20/2024 12:[address] [facility] COCAINE METABOLITES (U) NEGATIVE NEGATIVE 11/20/2024 12:[address] [facility] METHADONE (U) NEGATIVE NEGATIVE 11/20/2024 12:[address] [facility] OPIATE SCREEN (U) NEGATIVE NEGATIVE 025 12:[address] [facility] PHENCYCLIDINE PCP (U) NEGATIVE NEGATIVE 11/20/2024 12:[address] [facility] Comment: NOTE: RESULTS OF THIS DRUG SCREEN SHOULD BE USED FOR MEDICAL PURPOSES ONLY AND NOT FOR LEGAL OR EMPLOYMENT PURPOSES. POSITIVE RESULTS ARE NOT CONFIRMED. MEDICATIONS CONTAINING EPHEDRINE MAY CAUSE FALSE POSITIVE AMPHETAMINE CALL [phone], LAB, TO REQUEST CONFIRMATION TESTING. IF CREATININE IS <40 mg/dL. RECOLLECTION IS SUGGESTED. AMPHETAMINE- 500 NG/ML BARBITURATE- 200 NG/ML BENZODIAZEPINES- 200 NG/ML THC- 50 NG/ML COCAINE- 150 NG/ML METHADONE- 300 NG/ML OPIATE- 300 MG/ML PCP- 25 NG/ML CREATININE (U) 39.1 28 - 217 MG/DL 11/20/2024 12:[address] [facility] URINE SPECIMEN / Unknown 11/19/2024 11:58 PM CDT us Willy Rodríguez DO URINE ORDERABLES Final Result [facility] [address] [place] [address], [place] [phone] * Urinalysis, Auto, Complete (11/19/2024 11:57 PM CDT) SPECIMEN TYPE URINE, UNSPECIFIED 11/20/2024 12:[address] [facility] COLOR (U) COLORLESS 11/20/2024 1:[address] [facility] TRANSPARENCY CLEAR 11/20/2024 1:[address] [facility] SPECIFIC GRAVITY (U) 1.006 1.001 - 1.030 11/20/2024 1:[address] [facility] U PH 6.0 5.0 - 9.0 11/20/2024 1:[address] [facility] LEUKOCYTES (U) NEGATIVE NEGATIVE 11/20/2024 1:[address] [facility] NITRITES NEGATIVE NEGATIVE 11/20/2024 1:[address] [facility] PROTEIN RANDOM (U) NEGATIVE <30 MG/DL 11/20/2024 1:[address] [facility] GLUCOSE (U) NORMAL NORMAL MG/DL 11/20/2024 1:[address] [facility] KETONES MG/DL (U) NEGATIVE NEGATIVE MG/DL 11/20/2024 1:[address] [facility] UROBILINOGEN NORMAL NORMAL MG/DL 11/20/2024 1:[address] [facility] BILIRUBIN (U) NEGATIVE NEGATIVE MG/DL 11/20/2024 1:[address] [facility] BLOOD (U) NEGATIVE NEGATIVE 11/20/2024 1:[address] [facility] MUCUS RARE /LPF 11/20/2024 1:[address] [facility] RBC/HPF <1 <6 /HPF 11/20/2024 1:[address] [facility] SQUAMOUS EPITHELIALS RARE /HPF 11/20/2024 1:[address] [facility] URINE SPECIMEN / Unknown 11/19/2024 11:57 PM CDT us Willy Rodríguez DO URINE ORDERABLES Final Result [facility] [address] [facility] [place] [address], * ECG 12 lead (11/19/2024 10:39 PM CDT) Only the most recent of2 resultswithin the time period is included. 11/19/2024 10:3 9 PM CDT Narrative [facility] ([facility]) RAD - 11/20/2024 10:[address] [facility] Test Date: 2024-11-19 Pat Name: KEYANNA ROCHA Department: 41 Room: [id number] Gender: Female Repair Department Manager: [facility] : 1965 Requested By: WILLY RODRÍGUEZ Order Number: [id number] Reading SHAWN Abarca Measurements Intervals [place] Rate: 54 P: 29 KS: 164 QRS: 15 QRSD: 91 T: 101 QT: 440 QTc: 419 Interpretive Statements SINUS BRADYCARDIA NONSPECIFIC T-WAVE ABNORMALITY Compared to ECG 11/19/2024 18:39:58 Sinus rhythm no longer present T-wave abnormality still present Procedure Note Valdo Abarca MD - 11/20/2024 [facility] [address] Test Date: 2024-11-19 Pat Name: KEYANNA ROCHA Department: 41 Room: [id number] Gender: Female Repair Department Manager: [facility] : 1965 Requested By: WILLY RODRÍGUEZ Order Number: [id number] Reading SHAWN Abarca Measurements Intervals [place] Rate: 54 P: 29 KS: 164 QRS: 15 QRSD: 91 T: 101 QT: 440 QTc: 419 Interpretive Statements SINUS BRADYCARDIA NONSPECIFIC T-WAVE ABNORMALITY Compared to ECG 11/19/2024 18:39:58 Sinus rhythm no longer present T-wave abnormality still present Willy Rodríguez DO ECG ORDERABLES Final Result [facility] * TROPONIN, QUANT (11/19/2024 10:37 PM CDT) Only the most recent of2 resultswithin the time period is included. TROPONIN I HIGH SENSITIVITY 10 <54 ng/L 11/19/2024 11:[address] [facility] Comment: HIGH DOSES OF BIOTIN, TROPONIN-SPECIFIC AUTOANTIBODIES, AND ANTIBODY THERAPY CONTAINING HAMA MAY INTERFERE WITH THIS TEST RESULT. CORRELATION TO CLINICAL HISTORY AND PRESENTATION RECOMMENDED. 11/19/2024 10:3 7 PM CDT Willy Rodríguez DO LABORATORY Final Result [facility] [address] [place] [address], * CT HEAD WO CON (11/19/2024 8:45 [...] PM Narrative 11/19/2024 9:34 PM CDT [facility] [place] [address] EXAMINATION: CT Head without Contrast, Axial Imaging [...] Procedure Note Gracie Verdin MD - 11/19/2024 [place] [address] EXAMINATION: CT Head without Contrast, Axial Imaging [...] 7:11 PM Narrative 11/19/2024 7:17 PM CDT [address] [address] Examination: Chest 2 View History: Weakness DATE/TIME: 11/19/2024 6:46 PM Comparison: December 06, 2021 Technique: PA and lateral views were obtained. Findings: Heart size, mediastinal contours and pulmonary vasculature are within normal limits. No pulmonary consolidation, pleural effusion or pneumothorax. No acute osseous abnormality. Minimal scoliosis. Minimal linear left basilar atelectasis. Procedure Note Juan Quintana MD - 11/19/2024 [facility] [address] Examination: Chest 2 View History: Weakness DATE/TIME: [...] - 99 MG/DL 11/19/2024 7:[address] [facility] BUN 12 7 - 18 MG/DL 11/19/2024 7:[address] [facility] CREATININE S/P/B 0.82 0.55 - 1.02 MG/DL 11/19/2024 7:[address] [facility] SODIUM S/P/B 135(L) 136 - 145 MMOL/L 11/19/2024 7:[address] [facility] POTASSIUM S/P/B 4.1 3.5 - 5.1 MMOL/L 11/19/2024 7:[address] [facility] CHLORIDE S/P/B 105 97 - 115 MMOL/L 11/19/2024 7:[address] [facility] CO2 24.6 21 - 32 MMOL/L 11/19/2024 7:[address] [facility] CALCIUM S/P/B 9.2 8.5 - 10.1 MG/DL 11/19/2024 7:[address] [facility] BILIRUBIN TOTAL S/P/B 0.9 0.2 - 1.2 MG/DL 11/19/2024 7:[address] [facility] Comment: THIS ASSAY IS NOT RECOMMENDED FOR PATIENTS UNDERGOING TREATMENT WITH ELTROMBOPAG DUE TO THE POTENTIAL FOR FALSELY ELEVATED RESULTS. TOTAL PROTEIN S/P/B 7.5 6.4 - 8.2 G/DL 11/19/2024 7:[address] [facility] ALBUMIN S/P/B 3.7 3.4 - 5.0 G/DL 11/19/2024 7:[address] [facility] AST 22 15 - 37 U/L 11/19/2024 7:[address] [facility] ALT 32 14 - 55 U/L 11/19/2024 7:[address] [facility] ALKALINE PHOSPHATASE S/P/B 123 50 - 136 U/L 11/19/2024 7:[address] [facility] ANION GAP 5.4 2 - 10 MMOL/L 11/19/2024 7:[address] [facility] BUN CREATININE RATIO 14.6 6 - 26 11/19/2024 7:[address] [facility] A/G RATIO 1.0 1.0 - 2.0 RATIO 11/19/2024 7:[address] [facility] GFR ESTIMATE 82(L) >90 ML/MIN/1.7 3 M2 11/19/2024 7:[address] [facility] Comment: NOTE: eGFR is not calculated for patients <18 years of age or gender unknown. This is an estimated GFR calculation using the new CKD EPI creatinine equation without race and so does not require a correction factor for race. This estimated GFR should not be used for calculating drug doses. 11/19/2024 6:42 PM CDT us Valdo ANNE LABORATORY Final Resul t [facility] [address] [place] [address], [place] [phone] * (ABNORMAL) CBC W/DIFF AUTOMATED (11/19/2024 6:42 PM CDT) WBC 14.23(H) 4.5 - 11.0 x10'3/uL 11/19/2024 6:[address] [facility] RBC 5.11 4.20 - 5.40 x10'6/uL 11/19/2024 6:[address] [facility] HGB 16.2(H) 12.0 - 16.0 G/DL 11/19/2024 6:[address] [facility] HCT 48.6(H) 38.0 - 48.0 % 11/19/2024 6:[address] [facility] MCV 95.1 81.0 - 99.0 FL 11/19/2024 6:[address] [facility] MCH 31.7(H) 27.0 - 31.0 PG 11/19/2024 6:[address] [facility] MCHC 33.3 32.0 - 36.0 G/DL 11/19/2024 6:[address] [facility] RDW 13.0 11.5 - 14.5 % 11/19/2024 6:[address] [facility] PLT 380 130 - 400 x10'3/uL 11/19/2024 6:[address] [facility] MPV 9.5 9.3 - 12.2 FL 11/19/2024 6:[address] [facility] DIFFERENTIAL TYPE MANUAL DIFFERENTIAL 11/19/2024 7:[address] [facility] SEG NEUTROPHILS 59 % 7:[address] [facility] LYMPHOCYTES 22 % 11/19/2024 7:[address] [facility] ATYP. LYMPHS 6 % 11/19/2024 7:[address] [facility] MONOCYTES 10 % 11/19/2024 7:[address] [facility] EOSINOPHILS 1 % 11/19/2024 7:[address] [facility] BASOPHILS 2 % 11/19/2024 7:[address] [facility] ABS. NEUTROPHILS 8.40(H) 1.80 - 7.70 x10'3/uL 11/19/2024 7:[address] [facility] ABS. LYMPHOCYTES 3.98 1.00 - 4.80 x10'3/uL 11/19/2024 7:[address] [facility] ABS. MONOCYTES 1.42(H) 0.24 - 0.86 x10'3/uL 11/19/2024 7:[address] [facility] ABS. EOSINOPHILS 0.14 0.04 - 0.36 x10'3/uL 11/19/2024 7:[address] [facility] ABS. BASOPHILS 0.28(H) 0.01 - 0.08 x10'3/uL 11/19/2024 7:[address] [facility] RBC MORPHOLOGY RBC MORPHOLOGY APPEARS NORMAL. SLIDE REVIEWED. 11/19/2024 7:[address] [facility] PLT EST. ADEQUATE 11/19/2024 7:[address] [facility] 11/19/2024 6:42 PM CDT [facility] Final Resul t [facility] [address] [place] [phone], * MAGNESIUM (11/19/2024 6:42 PM CDT) MAGNESIUM 2.3 1.8 - 2.4 MG/DL 11/19/2024 7:[address] [facility] 11/19/2024 6:42 PM CDT [facility] Final Resul t Performing Organization Address [facility] Co de Phone Number [facility] [address] [place] [phone], * HEPATITIS C ANTIBODY (01/26/2019 1:19 PM [...] a test for HCV RNA (test code 30323) is suggested. For additional information please refer to http://education.[employer]/faq/BFJ27h5 (This link is being provided for informational/ educational purposes only.) 01/26/2019 1:19 PM CDT 01/27/2019 3:46 AM CDT Narrative Resulting Agency Comment Performing Organization Information: Site ID: [place] Name: [facility] Address: [address] [id number] Director: Jay Alcaraz D.O., MPH Chidi Mott MD LABORATORY Final Result [facility] from Last 3 Months or Most Recently Relevant to Health Maintenance Insurance [employer] Care Teams Combination Building Inspector Relationship Specialty Start Date End Date Monae Mccann FNP [address] [place] [phone] PCP - General Nurse Practitioner Family 05/18/19
--- OUTSIDE RECORDS SUMMARY | 2025-01-01 13:19 | XMS_ITS | Clinical Summary ---
Author Organization [facility] Address [address], [address] [place] [address] Phone Care Team Providers Care Motorcycle Tester Name Role Phone Chidi Mott MD Primary Care Provider [phone] Allergies No known active allergies Medications atorvastatin [...] age to complete this topic Insurance [facility] [facility] Care Teams Motorcycle Tester Relationship Specialty Start Date End Date Chidi Mott MD [address] [facility] [address] [place] [address] PCP - General Family Medicine 02/16/19
[2025-01-01 13:24] LABS: Alanine Aminotransferase 25 U/L (6-35); Albumin Level 4.2 g/dL (3.5-5.1); Alkaline Phosphatase 94 U/L (38-126); Anion Gap 7 mmol/L (4-12); Aspartate Amino Transferase 33 U/L (14-36); Bilirubin,Total 0.8 mg/dL (0.2-1.3); Blood Urea Nitrogen 9 mg/dL (7-17); Calcium 9.5 mg/dL (8.4-10.2); Carbon Dioxide 26 mmol/L (22-30); Chloride 104 mmol/L (98-107); Estimated CRCL calculation 68 ml/min; Estimated Glomerular Filt Rate > 60; Glucose 104 mg/dL (65-110); Lipase 89 U/L (23-300); Potassium 3.8 mmol/L (3.4-5.0); Sodium 137 mmol/L (137-145); Total Protein 7.5 g/dL (6.3-8.2)
[2025-01-01 13:31] LABS: INR 0.9; Prothrombin Time 12.5 Seconds (11.1-14.7)
[2025-01-01 13:33] LABS: Partial Thromboplastin Time 27.2 Seconds (22.3-36.8)
[2025-01-01 13:36] LABS: Troponin I < 0.012 ng/mL (0.000-0.034)
[2025-01-01 13:37] VITALS: BP 205/84; PULSE 88; RESP 18; O2SAT 100
--- NOTE | 2025-01-01 13:39 | ED.GENADULT ---
HPI - General Adult General Chief complaint: Chest Pain Stated complaint: high BP, chest pain, nauses Time Seen by Provider: 01/01/25 13:02 History of Present Illness HPI narrative: 59-year-old female presenting to the emergency department for evaluation for intermittent lightheaded dizziness and elevated blood pressure at home. Patient denies any associated chest pain or shortness of breath. While patient was getting out of bed in the emergency department she did injure her lower back. Patient does have history of chronic back pain and is following up with a physician for this. Patient denies any associated numbness or weakness. Patient denies any current chest pain or shortness of breath. Patient's primary complaint was lightheaded dizziness Related Data Home Medications ?Medication ?Instructions ?Recorded ?Confirmed ?Last Taken ?Type aripiprazole 2 mg tablet mg 02/21/22 03/13/24 Unknown History duloxetine 40 mg capsule,delayed 40 mg PO AC 01/24/23 03/13/24 Unknown History release acetaminophen 300 mg-codeine 30 mg 1 tablet PO DAILY 03/13/24 03/13/24 Unknown History tablet atorvastatin 40 mg tablet 40 mg PO DAILY 03/13/24 03/13/24 Unknown History potassium 99 mg tablet mg PO DAILY 03/13/24 03/13/24 Unknown History Allergies Allergy/AdvReac Type Severity Reaction Status Date / Time No Known Allergies Allergy Unknown Verified 01/01/25 12:13 Review of Systems Review of Systems: All systems reviewed & are unremarkable except as noted in HPI and below PMFSH Past Medical History Medical History (Updated 01/01/25 @ 16:37 by Surendra Bella MD) Chronic low back pain Depression Anxiety Hypercholesterolemia Surgical History Surgical History Normal colonoscopy History of hysterectomy Family History Family History Mother Patient's mother is in good health Hypertension Father Patient's father is in good health Family history of heart disease in male family member before age 55 Grandparent Acute myocardial infarction Grandparent Family history of coronary artery disease Son Alcoholism Depression Anxiety Other Family history of malignant neoplasm of cervix Family history of malignant neoplasm of uterus Social History Social History Smoking packs per day: 1 Smoking cigarettes per day: 20.0 Smoking status: Current every day smoker Tobacco type: cigarettes Alcohol intake: never Substance use: never Gender identity (if verbalized by the patient): Female Exam Narrative: APPEARANCE: Tearful appearing secondary to acute onset of lower back pain water negative bed. HEAD: normocephalic, atraumatic. EYES: PERRLA/EOMI, conjunctivae clear. NOSE: Normal no drainage EARS:TMS clear with good light reflex. THROAT: Pharynx clear, no exudate. NECK: Supple. No adenopathy, no masses. RESPIRATORY: Airway patent, respirations nonlabored. Clear to auscultation bilaterally, no rales, rhonchi, wheezing. CARDIOVASCULAR: Regular rate and rhythm without murmurs rubs or gallops. ABDOMINAL: Soft, nontender, nondistended, normal bowel sounds MUSCULOSKELETAL: Lower back tenderness to palpation NEURO: Alert. Cranial nerves II through XII intact. Good gait. Good coordination SKIN: Warm, dry. Normal Color Course Vital Signs Vital signs: Vital Signs Temperature 98.1 F 01/01/25 12:39 Pulse Rate 66 01/01/25 12:39 Respiratory Rate 18 01/01/25 12:39 Blood Pressure 221/119 H 01/01/25 12:39 Pulse Oximetry 97 01/01/25 12:39 Oxygen Delivery Room Air 01/01/25 12:39 Temperature 98.1 F 01/01/25 12:39 Pulse Rate 59 L 01/01/25 15:04 Respiratory Rate 18 01/01/25 15:04 Blood Pressure 169/87 H 01/01/25 17:34 Pulse Oximetry 100 01/01/25 15:04 Oxygen Delivery Room Air 01/01/25 15:00 Medical Decision Making [facility] [place] Narrative Medical decision making narrative: 59-year-old female present to the emergency department for evaluation for lightheadedness cyst and hypertension. Patient is currently afebrile but does have a leukocytosis of 11.0 hemoglobin of 15.4. Patient's INR 0.9. Patient has no acute abnormalities on her CMP patient had negative serial troponins. X-ray shows no acute cardiopulmonary abnormality. EKG shows normal sinus rhythm with no evidence of acute STEMI. Patient's blood pressure did continue to improve in the emergency department, patient did receive a single dose IV hydralazine but patient's blood pressure continues to improve. Patient did take her oral medications prior to arrival and these may be having a more significant fact than when she initially arrived. Patient was encouraged of close follow-up with her primary care physician. Patient was encouraged to check her blood pressure at least once daily. on re-evaluation patient states she does feel improved. Differential Diagnosis Differential Diagnosis: ACS, pneumonia, COVID, RSV, influenza a, back pain, pulmonary embolism Vital Signs Vital Signs: Vital Signs Temperature 98.1 F 01/01/25 12:39 Pulse Rate 66 01/01/25 12:39 Respiratory Rate 18 01/01/25 12:39 Blood Pressure 221/119 H 01/01/25 12:39 Pulse Oximetry 97 01/01/25 12:39 Oxygen Delivery Room Air 01/01/25 12:39 Temperature 98.1 F 01/01/25 12:39 Pulse Rate 59 L 01/01/25 15:04 Respiratory Rate 18 01/01/25 15:04 Blood Pressure 169/87 H 01/01/25 17:34 Pulse Oximetry 100 01/01/25 15:04 Oxygen Delivery Room Air 01/01/25 15:00 Lab Data Lab results reviewed: Yes I reviewed the patient's lab results. 01/01/25 12:57 01/01/25 12:57 Labs: Lab Results 01/01/25 01/01/25 Range/Units 12:57 15:46 WBC 11.0 H (4.5-10.0) K/mm3 RBC 4.81 (4.2-5.4) M/mm3 Hgb 15.4 H (12.0-15.0) g/dL Hct 46.1 (37.0-47.0) % MCV 95.8 (80-100) fl MCH 32.0 (26-34) pg MCHC 33.4 (32-36) g/dl RDW 13.2 (11.5-14.5) % Plt Count 363 (150-375) k/mm3 MPV 9.7 (7.4-10.4) fl Immature Gran % (Auto) 0.3 (0-0.5) % Neut % (Auto) 59.9 (45.5-73.1) % Lymph % (Auto) 28.0 (18.3-44.2) % [place] % (Auto) 10.0 H (2.6-8.5) % Eos % (Auto) 1.2 (0-4.4) % Baso % (Auto) 0.6 (0.2-1.2) % Lymph # (Auto) 3.08 (0.9-3.2) K/mm3 [place] # (Auto) 1.1 H (0.1-0.6) K/mm3 Eos # (Auto) 0.1 (0-0.3) K/mm3 Baso # (Auto) 0.1 (0.0-0.1) K/mm3 Abs Immat Gran (auto) 0.03 (0.00-0.031) K/mm3 Absolute Neuts (auto) 6.6 (1.3-6.7) K/mm3 Absolute Nucleated RBC 0.000 (0.0-0.012) K/mm3 Nucleated RBC % 0.0 (0.0-0.2) % PT 12.5 (11.1-14.7) Seconds INR 0.9 APTT 27.2 (22.3-36.8) Seconds Sodium 137 (137-145) mmol/L Potassium 3.8 (3.4-5.0) mmol/L Chloride 104 (98-107) mmol/L Carbon Dioxide 26 (22-30) mmol/L Anion Gap 7 (4-12) mmol/L BUN 9 (7-17) mg/dL Creatinine 0.74 (0.7-1.0) mg/dL Estim Creat Clear Calc 68 ml/min Estimated GFR > 60 (59 - ) Glucose 104 (65-110) mg/dL Calcium 9.5 (8.4-10.2) mg/dL Total Bilirubin 0.8 (0.2-1.3) mg/dL AST 33 (14-36) U/L ALT 25 (6-35) U/L Alkaline Phosphatase 94 (38-126) U/L Troponin I < 0.012 < 0.012 (0.000-0.034) ng/mL Total Protein 7.5 (6.3-8.2) g/dL Albumin 4.2 (3.5-5.1) g/dL Lipase 89 (23-300) U/L Imaging Data Radiologist's impression: Impressions Chest X-Ray 01/01/25 15:31 IMPRESSION: No acute process. ECG Data EKG #1: EKG Interpretation: normal rate, sinus rhythm, no ectopy, non-specific ST changes, normal QRS, normal QT and NL axis Discharge Plan Discharge Clinical Impression: Hypertension, Chronic lower back pain, Light-headed Patient Disposition: Home Condition: Stable Instructions: Antibiotic Form, Low-Sodium Diet (ED), Hypertension (ED) Additional Instructions: Your blood pressure did improve during your stay in the emergency department. Check your blood pressure at least once daily and document these numbers for your primary care physician. Depending on how these numbers trend your primary care physician may wish to change your blood pressure meds. Follow a low-sodium diet. If you have any worsening symptoms then please call or return to the emergency department. Patient Language: [place] Prescriptions: No Action aripiprazole 2 mg tablet duloxetine 40 mg capsule,delayed release(DR/EC) 40 mg PO AC atorvastatin 40 mg tablet 40 mg PO DAILY acetaminophen-codeine 300-30 mg tablet 1 tablet PO DAILY potassium 99 mg tablet PO DAILY Follow-up/Referrals: WILL,HALLIE LAN [Primary Care Provider] - Quality HEART score for chest pain patients History: slightly suspicious ECG: normal Age: > 45 and < 65 years Risk factors: 1 or 2 risk factors Troponin: < or = to 1x normal limit Heart score: 2
[2025-01-01] MEDS: ASPIRIN 81 MG CHEWABLE TABLET 324 MG PO (13:44)
[2025-01-01] MEDS: HYDROmorphone HCL INJ (*CRX) 2 MG/ML VIAL 1 MG IV PUSH (13:46)
[2025-01-01 15:00] VITALS: BP 180/72; PULSE 57; RESP 16; O2SAT 100
[2025-01-01 15:04] VITALS: BP 165/74; PULSE 59; RESP 18; O2SAT 100
--- NOTE | 2025-01-01 15:29 | ECG_ITS ---
Test Date: 2025-01-01 15:40:09 Measurements Intervals [place] Rate: 54 P: 32 OR: 151 QRS: 42 QRSD: 93 T: 90 QT: 422 QTc: 403 Interpretive Statements SINUS BRADYCARDIA NONSPECIFIC T-WAVE ABNORMALITY Compared to ECG 01/01/2025 12:49:04 NO SIGNIFICANT CHANGES Electronically Signed On 01-02-2025 18:45:16 CDT by Rylan Kirkland M.D.
[2025-01-01 16:22] LABS: Troponin I < 0.012 ng/mL (0.000-0.034)
[2025-01-01] MEDS: ACETAMINOPHEN 500 MG TABLET 1000 MG PO (16:53)
[2025-01-01 17:34] VITALS: BP 169/87
== END 2025-01-01 17:35 | disposition home or self-care (01) ==
PROVIDERS: Emergency Provider Emergency Medicine; PCP Nurse Practitioner Family
DX: R42 Dizziness and giddiness (principal); I10 Essential (primary) hypertension; M54.9 Dorsalgia, unspecified; G89.29 Other chronic pain; E78.00 Pure hypercholesterolemia, unspecified; F41.9 Anxiety disorder, unspecified; F32.A Depression, unspecified; F17.210 Nicotine dependence, cigarettes, uncomplicated; Z90.710 Acquired absence of both cervix and uterus; Z79.899 Other long term (current) drug therapy; R00.1 Bradycardia, unspecified; R94.31 Abnormal electrocardiogram [ECG] [EKG]
CPT/HCPCS: 36415; 71046; 80053; 83690; 84484; 85025; 85610; 85730; 93005; 96374; 96375; 99284; A9270; J0360; J1171